=== PATIENT | male | born 1950 | race Caucasian/White ===

== ENCOUNTER 2022-02-03 09:05 | Emergency (ER) | payer OTHER ==
[~2022-02-03] VITALS: Ht 172.7 cm; Wt 79.4 kg
[2022-02-03 09:51] LABS: BASOPHILS ABSOLUTE AUTO 0.03 K/mm3 (0.00-0.23); BASOPHILS PERCENT AUTO 1 % (0-2); EOSINOPHILS ABSOLUTE AUTO 0.07 K/mm3 (0.00-0.68); EOSINOPHILS PERCENT AUTO 2 % (0-6); Hemoglobin 11.8 g/dL (13.5-17.5); IMMATURE GRAN PERCENT AUTO 0 % (0-1); LYMPHOCYTES ABSOLUTE AUTO 0.94 K/mm3 (0.84-5.20); LYMPHOCYTES PERCENT AUTO 29 % (21-46); MONOCYTES ABSOLUTE AUTO 0.28 K/mm3 (0.16-1.47); MONOCYTES PERCENT AUTO 9 % (4-13); Mean Corpuscular HGB 28.6 pg (26.0-34.0); Mean Corpuscular HGB Conc 32.8 g/dL (31.5-36.5); Mean Corpuscular Volume 87 fL (80-100); Mean Platelet Volume 9.7 fL (9.1-12.4); NEUTROPHILS ABSOLUTE AUTO 1.89 K/mm3 (1.96-9.15); NEUTROPHILS PERCENT AUTO 59 % (41-73); Platelet Count 107 K/mm3 (150-400); RDW Coefficient Variation 13.6 % (11.7-14.2); RDW Standard Deviation 43.5 fL (35.1-46.3); Red Blood Cell Count 4.12 M/mm3 (4.30-5.90); White Blood Cell Count 3.21 K/mm3 (4.00-11.30)
[2022-02-03 10:02] LABS: Albumin, Blood 3.5 g/dL (3.4-5.0); Albumin/Globulin Ratio 0.8 (0.8-1.8); Bilirubin, Total 0.5 mg/dL (0.1-1.0); Calcium, Blood 9.2 mg/dL (8.5-10.1); Creatinine, Blood 1.27 mg/dL (0.60-1.20); Globulin, Blood 4.5 g/dL (2.2-4.0); Magnesium, Blood 2.2 mg/dL (1.6-2.4); Potassium, Blood 3.9 mmol/L (3.5-5.5)
[2022-02-03] MEDS ORDERED: LIDO700A20 TOP (10:49)
[2022-02-03] MEDS ORDERED: FLUT1DIS5 INH (10:50)
[2022-02-03] MEDS ORDERED: COMBIVENT RESPIM4 G1 INH (10:51)
[2022-02-03] MEDS ORDERED: OCUFLOX510 OP (10:51)
[2022-02-03] MEDS ORDERED: METF500 PO (10:52)
[2022-02-03] MEDS ORDERED: PRAV20 PO (10:52)
[2022-02-03] MEDS ORDERED: CLOP75 PO (10:52)
[2022-02-03] MEDS ORDERED: LISI20 PO (10:53)
[2022-02-03] MEDS ORDERED: OMEP20ER PO (10:53)
[2022-02-03] MEDS ORDERED: MAGNESIUM OXID500 MG PO (10:53)
[2022-02-03] MEDS ORDERED: GABA300 PO (10:53)
[2022-02-03] MEDS ORDERED: SUBVENITE150 M5 PO (10:54)
[2022-02-03] MEDS ORDERED: JARDIANCE25 MG PO (10:55)
[2022-02-03] MEDS ORDERED: Vitamin D1000 UNI1 PO (10:55)
[2022-02-03] MEDS ORDERED: AMLO10 PO (10:56)
[2022-02-03] MEDS ORDERED: BACL10 PO (10:56)
[2022-02-03] MEDS ORDERED: ALLERCLEAR10 MG PO (10:56)
[2022-02-03] MEDS ORDERED: LEVO750 PO (12:15)
== END 2022-02-03 12:36 | disposition home or self-care (01) ==
LOC: ER 09:05
PROVIDERS: Student in an Organized Health Care Education/Training Program
DX: J18.9 Pneumonia, unspecified organism (principal); E11.9 Type 2 diabetes mellitus without complications; I10 Essential (primary) hypertension; Z87.891 Personal history of nicotine dependence; Z79.899 Other long term (current) drug therapy; Z79.02 Long term (current) use of antithrombotics/antiplatelets; Z79.84 Long term (current) use of oral hypoglycemic drugs
CPT/HCPCS: 71045; 80053; 83735; 84484; 85025; 93005; 93010; A9270; J1642

== ENCOUNTER 2022-10-20 06:20 | Inpatient (IN) | payer OTHER ==
[~2022-10-20] VITALS: Ht 180.3 cm; Wt 75.5 kg
[~2022-10-20 06:20] MED LIST: ALLERCLEAR10 MG PO; AMLO10 PO; BACL10 PO; CLOP75 PO; COMBIVENT RESPIM4 G1 INH; FLUT1DIS5 INH; GABA300 PO; JARDIANCE25 MG PO; LEVO750 PO; LIDO700A20 TOP; LISI20 PO; MAGNESIUM OXID500 MG PO; METF500 PO; OCUFLOX510 OP; OMEP20ER PO; PRAV20 PO; SUBVENITE150 M5 PO; Vitamin D1000 UNI1 PO
[2022-10-20 06:48] LABS: BASOPHILS ABSOLUTE AUTO 0.05 K/mm3 (0.00-0.23); BASOPHILS PERCENT AUTO 1 % (0-2); EOSINOPHILS ABSOLUTE AUTO 0.06 K/mm3 (0.00-0.68); EOSINOPHILS PERCENT AUTO 1 % (0-6); Hematocrit 24.7 % (37.0-53.0); IMMATURE GRAN ABSOLUTE AUTO 0.02 K/mm3 (0.00-0.10); IMMATURE GRAN PERCENT AUTO 0 % (0-1); LYMPHOCYTES ABSOLUTE AUTO 1.51 K/mm3 (0.84-5.20); LYMPHOCYTES PERCENT AUTO 24 % (21-46); MONOCYTES ABSOLUTE AUTO 0.46 K/mm3 (0.16-1.47); MONOCYTES PERCENT AUTO 7 % (4-13); Mean Corpuscular HGB 28.6 pg (26.0-34.0); Mean Corpuscular HGB Conc 32.4 g/dL (31.5-36.5); Mean Corpuscular Volume 88 fL (80-100); Mean Platelet Volume 9.9 fL (9.1-12.4); NEUTROPHILS ABSOLUTE AUTO 4.21 K/mm3 (1.96-9.15); NEUTROPHILS PERCENT AUTO 67 % (41-73); Platelet Count 162 K/mm3 (150-400); RDW Coefficient Variation 14.8 % (11.7-14.2); RDW Standard Deviation 47.5 fL (35.1-46.3); White Blood Cell Count 6.31 K/mm3 (4.00-11.30)
[2022-10-20 07:07] LABS: Albumin, Blood 2.8 g/dL (3.4-5.0); Albumin/Globulin Ratio 0.8 (0.8-1.8); Bilirubin, Direct 0.1 mg/dL (0.0-0.3); Bilirubin, Indirect 0.5 mg/dL (0.1-0.7); Bilirubin, Total 0.6 mg/dL (0.1-1.0); Bun/Creatinine Ratio 23.3 (12.0-20.0); Calcium, Blood 8.6 mg/dL (8.5-10.1); Creatinine, Blood 1.16 mg/dL (0.60-1.20); Globulin, Blood 3.7 g/dL (2.2-4.0); Magnesium, Blood 2.2 mg/dL (1.6-2.4); Potassium, Blood 3.6 mmol/L (3.5-5.5); Total Protein, Blood 6.5 g/dL (6.4-8.2)
[2022-10-20 08:03] LABS: International Normalized Ratio 1.13; Prothrombin Time Results 11.8 Sec (9.7-11.5)
[2022-10-20 10:34] LABS: Hematocrit 24.6 % (37.0-53.0); Hemoglobin 8.1 g/dL (13.5-17.5); Mean Corpuscular HGB 28.6 pg (26.0-34.0); Mean Corpuscular HGB Conc 32.9 g/dL (31.5-36.5); Mean Corpuscular Volume 87 fL (80-100); Mean Platelet Volume 9.8 fL (9.1-12.4); Platelet Count 178 K/mm3 (150-400); RDW Coefficient Variation 14.6 % (11.7-14.2); RDW Standard Deviation 44.9 fL (35.1-46.3); Red Blood Cell Count 2.83 M/mm3 (4.30-5.90); White Blood Cell Count 9.64 K/mm3 (4.00-11.30)
[2022-10-20] MEDS ORDERED: Amoxicillin500 MG PO (10:40)
[2022-10-20] MEDS ORDERED: EPIPEN0.3 MG/0.3 IM (10:41)
[2022-10-20] MEDS ORDERED: TRAM50 PO (10:43)
[2022-10-20 10:53] LABS: Influenza A, PCR NEGATIVE (NEGATIVE); Influenza B, PCR NEGATIVE (NEGATIVE); Resp Syncytial Virus, PCR NEGATIVE (NEGATIVE); SARS-Cov-2 (COVID-19) PCR, MMC NEGATIVE (NEGATIVE)
[2022-10-20 14:54] LABS: Hematocrit 21.7 % (37.0-53.0); Hemoglobin 7.2 g/dL (13.5-17.5)
[2022-10-20 16:06] LABS: Hemoglobin 6.7 g/dL (13.5-17.5)
--- NOTE | 2022-10-20 18:53 | NUR ---
ADMISSION/ END OF SHIFT PT ADMITTED FROM THE ED INTO ROOM PCU3. PT WAS ORIENTED TO ROOM AND CALL LIGHT SYSTEM. VITALS STABLE SINCE ADMISSION. NO EMESIS. PT HAS HAD DARK TARRY STOOL. PT REPORTS FREQUENCY HAS DECREASED. THIRD IV ACCESS STARTED. PT CURRENTLY HAS PROTONIX AND OCTEROTIDE GTT. WAITING ON BLOOD TO BE DELIVERED. PT IS ABLE TO MAKE NEEDS KNOWN, AWARE THAT HE NEEDS TO CALL WHEN GETTING OOB. CALL LIGHT IS WITHIN REACH.
[2022-10-20 22:29] LABS: Hematocrit 23.3 % (37.0-53.0); Hemoglobin 7.6 g/dL (13.5-17.5)
[2022-10-21 02:15] LABS: Hemoglobin 7.8 g/dL (13.5-17.5)
[2022-10-21 02:29] LABS: International Normalized Ratio 1.16; Prothrombin Time Results 12.1 Sec (9.7-11.5)
[2022-10-21 02:31] LABS: Albumin, Blood 2.8 g/dL (3.4-5.0); Albumin/Globulin Ratio 0.8 (0.8-1.8); Bilirubin, Total 1.1 mg/dL (0.1-1.0); Bun/Creatinine Ratio 25.4 (12.0-20.0); Creatinine, Blood 1.22 mg/dL (0.60-1.20); Globulin, Blood 3.6 g/dL (2.2-4.0); Potassium, Blood 3.6 mmol/L (3.5-5.5); Total Protein, Blood 6.4 g/dL (6.4-8.2)
--- NOTE | 2022-10-21 05:34 | NUR ---
SHIFT SUMMARY ASSUMED CARE OF PT AT 1900. PT IS A/OX4. HEART SOUNDS REGULAR. LUNG SOUNDS CLEAR. PT REQUESTED 2L NC AT [facility] DUE TO SLEEP APNEA BUT PT DID NOT HAVE ANY EPISODES AND SATURATIONS REMAINED ABOVE 95% WHILE SLEEPING. PT ABD IS DISTENED AND PAINFUL, MEDICATED PER EMAR. NO BM OR NEASEA THIS SHIFT. PT USED URINAL T/O THE NIGHT. PT SLEPT T/O THE NIGHT.
[2022-10-21 06:17] LABS: Hematocrit 23.8 % (37.0-53.0)
[2022-10-21 10:28] LABS: Hematocrit 23.2 % (37.0-53.0); Hemoglobin 7.8 g/dL (13.5-17.5)
[2022-10-21 14:21] LABS: Hematocrit 24.4 % (37.0-53.0); Hemoglobin 8.1 g/dL (13.5-17.5)
--- NOTE | 2022-10-21 18:24 | NUR ---
END OF SHIFT NOTE PT HAD A DECENT DAY DESPITE BEING ABLE TO BE TRANSFERRED TO [place]. PT CONTINUES TO HAVE BLACK, TARRY STOOL BUT WITH LESS FREQUENCY. ABD CONTINUES TO BE DISTENDED AND TENDER. CBGs IN THE HIGH 200s, PT ENCOURAGED TO DRINK LOWER SUGAR OPTIONS OR DILUTE JUICE. OCTEROTIDE AND PROTONIX GTTs CONTINUE. LAST HBG 8.1, NEXT DRAW AT 2200. PT IS ABLE TO MAKE NEEDS KNOWN, CALL LIGHT IS WITHIN REACH.
[2022-10-21 22:20] LABS: Hematocrit 21.8 % (37.0-53.0); Hemoglobin 7.2 g/dL (13.5-17.5)
[2022-10-22 04:01] LABS: Hematocrit 22.5 % (37.0-53.0); Hemoglobin 7.4 g/dL (13.5-17.5)
[2022-10-22 04:19] LABS: Albumin, Blood 2.7 g/dL (3.4-5.0); Albumin/Globulin Ratio 0.8 (0.8-1.8); Bilirubin, Total 0.5 mg/dL (0.1-1.0); Bun/Creatinine Ratio 17.3 (12.0-20.0); Calcium, Blood 7.9 mg/dL (8.5-10.1); Creatinine, Blood 1.04 mg/dL (0.60-1.20); Globulin, Blood 3.4 g/dL (2.2-4.0); Potassium, Blood 3.4 mmol/L (3.5-5.5); Total Protein, Blood 6.1 g/dL (6.4-8.2)
--- NOTE | 2022-10-22 05:38 | NUR ---
SHIFT SUMMARY ASSUMED CARE OF PT AT 1900. PT IS A/OX4. HEART SOUNDS REGULAR. LUNG SOUNDS CLEAR. PT REQUESTED NEEDED ING OXYGEN BECAUSE HE COULD NOT SLEEP LAST NIGHT. DESPITE OXYGEN LEVELS BEING MONITORED AND PT SATURATIONS REMAINING ABOVE 95%. PT USED URINAL AT BEDSIDE. PT REPORTED ABD PAIN, MEDICATED PER EMAR. NO ACUTE CHANGES.
--- NOTE | 2022-10-22 11:30 | NUR ---
UPDATE / PAIN PT A&O X4. VSS. SPO2 > 92% ON RA. MONITOR SHOWING SR, HR 60s. PT REPORTING CONSTANT ABD TENDERNESS THIS AM. LATER THIS MORNING, PT REPORTING 8/10 SHARP STABBING PAIN TO R ABD. PT THEN REPORTING NAUSEA & SOB. PT THEN W/ TEARS IN EYES, STATING "I'M NOT ONE TO CRY, BUT THIS IS BRINGING TEARS TO MY EYES. THIS IS NOT LIKE ME." PT REPORTING PAIN INCREASE TO 10/10. PRN IV ZOFRAN GIVEN PER EMAR. CALL TO MD LAYTON W/ TO BEDSIDE W/ ORDER FOR PRN IV FENTANYL, SEE ORDER & ABD US. PT MEDICATED FOR PAIN W/ IMPROVEMENT IN SYMPTOMS. US NOW BEING DONE AT BEDSIDE.
[2022-10-22 12:00] LABS: Hematocrit 22.1 % (37.0-53.0); Hemoglobin 7.4 g/dL (13.5-17.5)
--- NOTE | 2022-10-22 13:16 | NUR ---
COBRA TRANSFER PT TRANSFER TO [facility]. PT TAKEN OUT BY TRANSPORT VIA [facility] @ APPROX 1300. PROTONIX GTT & OCTREOTIDE GTT INFUSING PER ORDERS. PT A&O X4. VSS. SPO2 > 92% ON RA. MONITOR SHOWING SR, HR 60s. PT REPORTING ABD PAIN DECREASE TO 4/10 AFTER PRN PAIN MEDICATION ADMINISTRATION. PT W/ 1 BLACK BM THIS SHIFT PRIOR TO DEPARTURE. REPORT CALLED TO ACCEPTING GUSTAVO PEREZ.
== END 2022-10-22 12:58 | disposition short-term general hospital (02) | DRG 433 ==
LOC: ER 06:20 → ERHOLD 13:17 → PCU 16:53
PROVIDERS: Nurse Practitioner Acute Care; Student in an Organized Health Care Education/Training Program; ADMIT Hospitalist
PROC: 30233N1 Transfusion of Nonautologous Red Blood Cells into Peripheral Vein, Percutaneous Approach (ICD-10-PCS; principal; 2022-10-20)
DX: K74.60 Unspecified cirrhosis of liver (principal); C22.0 Liver cell carcinoma; K92.0 Hematemesis; D62 Acute posthemorrhagic anemia; I13.0 Hypertensive heart and chronic kidney disease with heart failure and stage 1 through stage 4 chronic kidney disease, or unspecified chronic kidney disease; I48.20 Chronic atrial fibrillation, unspecified; I50.32 Chronic diastolic (congestive) heart failure; R18.8 Other ascites; K76.6 Portal hypertension; R65.10 Systemic inflammatory response syndrome (SIRS) of non-infectious origin without acute organ dysfunction; E87.20 Acidosis, unspecified; Z20.822 Contact with and (suspected) exposure to COVID-19; K21.9 Gastro-esophageal reflux disease without esophagitis; F41.9 Anxiety disorder, unspecified; M54.12 Radiculopathy, cervical region; N18.9 Chronic kidney disease, unspecified; E11.22 Type 2 diabetes mellitus with diabetic chronic kidney disease; J44.9 Chronic obstructive pulmonary disease, unspecified; I25.10 Atherosclerotic heart disease of native coronary artery without angina pectoris; B19.20 Unspecified viral hepatitis C without hepatic coma; F32.A Depression, unspecified; F43.10 Post-traumatic stress disorder, unspecified; G40.909 Epilepsy, unspecified, not intractable, without status epilepticus; E78.5 Hyperlipidemia, unspecified; I65.29 Occlusion and stenosis of unspecified carotid artery; Z98.890 Other specified postprocedural states; Z88.2 Allergy status to sulfonamides; Z88.1 Allergy status to other antibiotic agents; Z88.5 Allergy status to narcotic agent; Z88.8 Allergy status to other drugs, medicaments and biological substances; Z79.899 Other long term (current) drug therapy
CPT/HCPCS: 0241U; 36415; 36430; 74177; 76705; 80048; 80053; 80076; 82947; 83605; 83690; 83735; 85014; 85018; 85025; 85027; 85610; 85730; 86850; 86870; 86900; 86901; 86902; 86905; 86922; 93005; 93010; 94640; 94664; 94760; 96365-59; 96366; 96367; 96375; 96376; 99285-25; A9270; C1751; C9113; J0696; J2354; J2405; J2765; J3010; J3475; J7050; P9016; Q9967

== ENCOUNTER 2023-03-22 09:08 | Inpatient (IN) | payer OTHER ==
[~2023-03-22] VITALS: Ht 172.7 cm; Wt 77.0 kg
[~2023-03-22 09:08] MED LIST changes: +Amoxicillin500 MG PO; +EPIPEN0.3 MG/0.3 IM; +HYDR1TAB94 PO; +ONDA4ODT MM; +TRAM50 PO
[2023-03-22 09:53] LABS: BASOPHILS ABSOLUTE AUTO 0.03 K/mm3 (0.00-0.23); BASOPHILS PERCENT AUTO 1 % (0-2); EOSINOPHILS ABSOLUTE AUTO 0.05 K/mm3 (0.00-0.68); EOSINOPHILS PERCENT AUTO 2 % (0-6); Hematocrit 32.6 % (37.0-53.0); Hemoglobin 10.3 g/dL (13.5-17.5); IMMATURE GRAN ABSOLUTE AUTO 0.01 K/mm3 (0.00-0.10); IMMATURE GRAN PERCENT AUTO 0 % (0-1); LYMPHOCYTES ABSOLUTE AUTO 0.39 K/mm3 (0.84-5.20); LYMPHOCYTES PERCENT AUTO 12 % (21-46); MONOCYTES PERCENT AUTO 9 % (4-13); Mean Corpuscular HGB 25.4 pg (26.0-34.0); Mean Corpuscular HGB Conc 31.6 g/dL (31.5-36.5); Mean Corpuscular Volume 80 fL (80-100); Mean Platelet Volume 9.4 fL (9.1-12.4); NEUTROPHILS ABSOLUTE AUTO 2.42 K/mm3 (1.96-9.15); NEUTROPHILS PERCENT AUTO 76 % (41-73); Platelet Count 119 K/mm3 (150-400); RDW Coefficient Variation 16.6 % (11.7-14.2); RDW Standard Deviation 48.2 fL (35.1-46.3); Red Blood Cell Count 4.06 M/mm3 (4.30-5.90)
[2023-03-22 10:16] LABS: Albumin, Blood 2.8 g/dL (3.4-5.0); Albumin/Globulin Ratio 0.6 (0.8-1.8); Bilirubin, Total 0.4 mg/dL (0.1-1.0); Bun/Creatinine Ratio 12.2 (12.0-20.0); Calcium, Blood 8.5 mg/dL (8.5-10.1); Creatinine, Blood 1.23 mg/dL (0.60-1.20); Globulin, Blood 4.4 g/dL (2.2-4.0); Potassium, Blood 4.4 mmol/L (3.5-5.5); Total Protein, Blood 7.2 g/dL (6.4-8.2)
[2023-03-22] MEDS ORDERED: AMLO5 PO (16:19)
[2023-03-22] MEDS ORDERED: AMOX500 PO (16:19)
[2023-03-22] MEDS ORDERED: ZESTRIL40 MG PO (16:21)
[2023-03-22 16:51] VITALS: BP 102/79
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
[2023-03-22 19:25] VITALS: BP 98/67
[2023-03-23 01:22] LABS: Hematocrit 32.2 % (37.0-53.0); Mean Corpuscular HGB 25.1 pg (26.0-34.0); Mean Corpuscular HGB Conc 31.1 g/dL (31.5-36.5); Mean Corpuscular Volume 81 fL (80-100); Mean Platelet Volume 9.1 fL (9.1-12.4); Platelet Count 104 K/mm3 (150-400); RDW Coefficient Variation 16.4 % (11.7-14.2); RDW Standard Deviation 48.8 fL (35.1-46.3); Red Blood Cell Count 3.99 M/mm3 (4.30-5.90); White Blood Cell Count 1.97 K/mm3 (4.00-11.30)
[2023-03-23 01:41] LABS: Bun/Creatinine Ratio 13.7 (12.0-20.0); Calcium, Blood 8.5 mg/dL (8.5-10.1); Creatinine, Blood 1.24 mg/dL (0.60-1.20); Potassium, Blood 4.4 mmol/L (3.5-5.5)
[2023-03-23 04:14] VITALS: BP 152/87
[2023-03-23 04:15] VITALS: BP 126/86
[2023-03-23 04:18] VITALS: BP 201/166
--- NOTE | 2023-03-23 05:50 | NUR ---
PATIENT A/OX4, NEEDS ASSISTANCE TO GET TO SITTING POSITION DUE TO L ARM IMMOBILIZER, OTHERWISE, INDEPENDENT IN ROOM. SLEPT MOST OF THIS SHIFT. BANDAGES TO L ARM REMAIN C/D/I, PATIENT REFUSED TO HAVE THEM CHANGED LAST NIGHT AND WANTED TO WAIT UNTIL THE MORNING. ORTHOSTATIC VITAL SIGNS TAKEN AND BLOOD PRESSURE ACUTALLY WENT UP SIGNIFICANTY WHILE STANDING. ST ON TELE, DENIES ANY CP OR PRESSURE. SEE SEPARATE NOTE BY THIS RN FOR ORTHOSTATIC VITAL SIGNS. MEDIPORT ACCESSED AND FLUIDS RUNNING TKO.
--- NOTE | 2023-03-23 05:58 | NUR ---
ORTHOSTATIC VITAL SIGNS: LYING: B/P 152/87 HR 113 SITTING: B/P 126/86 HR 117 STANDING: B/P 201/166 HR 114 (REPEATED TWICE) SCHEDULED METOPROLOL GIVEN AND DR. DRIVER NOTIFIED OF FINDINGS.
[2023-03-23 15:30] VITALS: BP 99/73
--- NOTE | 2023-03-23 18:02 | NUR ---
SHIFT SUMMARY PATIENT CONTINUES TO BE IN A FLUTTER FROM 110'S TO 130'S. INCREASED DOSES OF METOPROLOL AND STARTING LANOXIN LOADING DOSE. PATIENT ALERT AND COOPERATIVE WITH CARE. SHOULDER IMMOBILIZER IN PLACE. PATIENT MEDICATED FOR PAIN WITH TRAMADOL PATIENT DENIES ANY CP. BP IMPROVED. CONTINUES TO HAVE DIZZINESS WHEN OOB. PT WORKED WITH PT AND OT BUT WAS NOT ABLE TO DO MUCH BECAUSE OF DIZZINESS.
[2023-03-23 20:56] VITALS: BP 118/99
[2023-03-24 01:48] VITALS: BP 139/95
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
[2023-03-24 06:18] LABS: Digoxin (Lanoxin) 1.82 ug/mL (0.80-2.00)
--- NOTE | 2023-03-24 06:45 | NUR ---
MEDICATION OVERRIDE FOR RAPID RESPONSE. WAS UNABLE TO PULL 1000 NORMAL SALINE FROM PT EMAR.
[2023-03-24 07:28] VITALS: BP 135/67
[2023-03-24 16:03] VITALS: BP 143/63
[2023-03-24 16:30] VITALS: BP 109/72
--- NOTE | 2023-03-24 18:30 | NUR ---
SHIFT SUMMARY PATIENT CONVERTED TO SB AT START OF SHIFT. FRAMEMAN CALLED. PATIENT ALERT AND ORIENTED. FLUID BOLUS GIVEN AND CONTINUED TO REMAIN IN SR THROUGHOUT THE DAY. CONTINUES TO HAVE SHOULDER PAIN CONTROLLED BY TRAMADOL. SPLINT/SLING IN PLACE HOLDING L SHOULDER. PATIENT EAGER TO GET HOME BUT UNDERSTANDS NEED TO ADJUST MEDS FOR RATE CONTROL. ORTHOSTATIC BLOOD PRESSURES DONE PER REQUEST WITH MINIMAL CHANGES.
[2023-03-25 05:03] VITALS: BP 121/57
--- NOTE | 2023-03-25 07:09 | NUR ---
UNEVENTFUL NIGHT. SINUS TU ON TELE IN 50'S ULTRAM FOR PAIN X2 WITH MODERATE EFFECTIVENESS. AO, PLEASANT, CONTINENT, EXPRESSES DESIRE TO RETURN HOME TODAY. USES URINAL INDEPENDENTLY AT NIGHT. DENIES CP, SOB. FIRE SAFETY REVIEWED.
[2023-03-25 07:24] VITALS: BP 123/72
[2023-03-25] MEDS ORDERED: DIGOX125 MC1 PO (10:46)
[2023-03-25] MEDS ORDERED: METO25 PO (10:47)
--- NOTE | 2023-03-25 11:47 | NUR ---
DISCHARGE MR LUNA WAS DISCHARGED HOME AT 1145 VIA WHEELCHAIR WITH BEAD BUILDER AND HIS . HE VERBALISED UNDERSTANDING OF WRITTEN AND VERBAL DISCHARGE INSTRUCTIONS. LEFT ARM IN IMMOBILIZER ALL SHIFT. PT AMBULATING WITH STEADY GAIT. C/O CHRONIC BACK PAIN AND LEFT SHOULDER DISCOMFORT BUT DENIED NEED FOR PAIN MEDS TODAY. MEDIPORT DEACCESSED AND TELEMETRY REMOVED PRIOR TO DISCHARGE.
== END 2023-03-25 11:50 | disposition home or self-care (01) | DRG 309 ==
LOC: ER 09:08 → MEDS 09:09 → ENPENDDIS 03-25 10:51 → MEDS 03-25 11:50
PROVIDERS: Emergency Medicine; ADMIT Internal Medicine
DX: I48.92 Unspecified atrial flutter (principal); D61.818 Other pancytopenia; I48.91 Unspecified atrial fibrillation; I95.9 Hypotension, unspecified; R29.6 Repeated falls; K74.60 Unspecified cirrhosis of liver; B19.20 Unspecified viral hepatitis C without hepatic coma; E78.5 Hyperlipidemia, unspecified; K21.9 Gastro-esophageal reflux disease without esophagitis; K26.9 Duodenal ulcer, unspecified as acute or chronic, without hemorrhage or perforation; K25.9 Gastric ulcer, unspecified as acute or chronic, without hemorrhage or perforation; E11.42 Type 2 diabetes mellitus with diabetic polyneuropathy; I25.10 Atherosclerotic heart disease of native coronary artery without angina pectoris; F43.10 Post-traumatic stress disorder, unspecified; I65.29 Occlusion and stenosis of unspecified carotid artery; R00.1 Bradycardia, unspecified; I10 Essential (primary) hypertension; G40.909 Epilepsy, unspecified, not intractable, without status epilepticus; Z90.49 Acquired absence of other specified parts of digestive tract; Z98.890 Other specified postprocedural states; Z85.05 Personal history of malignant neoplasm of liver; Z88.8 Allergy status to other drugs, medicaments and biological substances; Z88.5 Allergy status to narcotic agent; Z87.19 Personal history of other diseases of the digestive system; Z92.3 Personal history of irradiation; Z87.81 Personal history of (healed) traumatic fracture; Z88.1 Allergy status to other antibiotic agents; Z87.891 Personal history of nicotine dependence; I25.2 Old myocardial infarction; Z79.899 Other long term (current) drug therapy; Z79.2 Long term (current) use of antibiotics; Z79.02 Long term (current) use of antithrombotics/antiplatelets; Z79.811 Long term (current) use of aromatase inhibitors; Z79.84 Long term (current) use of oral hypoglycemic drugs
CPT/HCPCS: 71260; 80048; 80053; 80162; 82947; 83880; 84443; 84484; 85025; 85027; 93005; 93010; 93306; 94640; 94664; 94760; 96361; 96372; 96374-59; 96375-59; 97161; 97165; 97530; 99285-25; A9270; G0378; J1160; J1170; J1642; J1650; J2405; J7030; J7050; Q9967

== ENCOUNTER 2023-05-21 21:30 | Inpatient (IN) | payer OTHER ==
[~2023-05-21] VITALS: Ht 172.7 cm; Wt 77.1 kg
[~2023-05-21 21:30] MED LIST changes: +AMLO5 PO; +AMOX500 PO; +DIGOX125 MC1 PO; +METO25 PO; +ZESTRIL40 MG PO
[2023-05-21 21:56] LABS: BASOPHILS ABSOLUTE AUTO 0.03 K/mm3 (0.00-0.23); BASOPHILS PERCENT AUTO 1 % (0-2); EOSINOPHILS ABSOLUTE AUTO 0.04 K/mm3 (0.00-0.68); EOSINOPHILS PERCENT AUTO 2 % (0-6); Hemoglobin 10.2 g/dL (13.5-17.5); IMMATURE GRAN ABSOLUTE AUTO 0.01 K/mm3 (0.00-0.10); IMMATURE GRAN PERCENT AUTO 0 % (0-1); LYMPHOCYTES ABSOLUTE AUTO 0.28 K/mm3 (0.84-5.20); LYMPHOCYTES PERCENT AUTO 10 % (21-46); MONOCYTES ABSOLUTE AUTO 0.34 K/mm3 (0.16-1.47); MONOCYTES PERCENT AUTO 13 % (4-13); Mean Corpuscular HGB 24.6 pg (26.0-34.0); Mean Corpuscular HGB Conc 30.9 g/dL (31.5-36.5); Mean Corpuscular Volume 80 fL (80-100); Mean Platelet Volume 9.9 fL (9.1-12.4); NEUTROPHILS PERCENT AUTO 74 % (41-73); Platelet Count 115 K/mm3 (150-400); RDW Coefficient Variation 16.5 % (11.7-14.2); RDW Standard Deviation 47.6 fL (35.1-46.3); Red Blood Cell Count 4.15 M/mm3 (4.30-5.90)
[2023-05-21 22:24] LABS: Alanine Aminotransfer (ALT/SGP 21 U/L (12-78); Albumin, Blood 3.2 g/dL (3.4-5.0); Albumin/Globulin Ratio 0.7 (0.8-1.8); Alk Phos 157 U/L (50-136); Anion Gap 7 mmol/L (6-16); Aspartate Aminotrans (AST/SGOT 20 U/L (12-37); Bilirubin, Total 0.3 mg/dL (0.1-1.0); Blood Urea Nitrogen 15 mg/dL (8-24); Bun/Creatinine Ratio 11.8 (12.0-20.0); CO2, Blood 26 mmol/L (21-32); Calcium, Blood 8.9 mg/dL (8.5-10.1); Chloride, Blood 107 mmol/L (98-108); Creatinine, Blood 1.27 mg/dL (0.60-1.20); Digoxin (Lanoxin) <0.06 ug/mL (0.80-2.00); Globulin, Blood 4.7 g/dL (2.2-4.0); Glomerular Filtration Rate 60 (60-); Glucose, Blood 364 mg/dL (70-99); Potassium, Blood 4.6 mmol/L (3.5-5.5); Sodium, Blood 140 mmol/L (136-145); Total Protein, Blood 7.9 g/dL (6.4-8.2)
[2023-05-22] VITALS (7 sets, daily range): BP systolic 97–137; BP diastolic 69–79
[2023-05-22 01:00] LABS: Anti-Xa UFH, PHA Monitoring <0.10 IU/mL; Prothrombin Time Results 10.5 Sec (9.7-11.5)
--- NOTE | 2023-05-22 01:01 | NUR ---
TRANSFER UPDATE REPORT RECIEVED FROM ER NURSE, TIFFANIE, AT 1257.
[2023-05-22 01:29] LABS: CHOL/HDL RATIO 3.5; Cholesterol 183 mg/dL (50-200); HDL Cholesterol 52 mg/dL (>39); LDL/HDL RATIO 1.6; Low Density Lipoprotein Chol 85 mg/dL (0-110); Magnesium, Blood 2.3 mg/dL (1.6-2.4); Thyroid Stimulating Hormone 0.426 uIU/mL (0.360-4.800); Triglycerides 229 mg/dL (30-160); Very Low Density Lipoprot Chol 45 mg/dL (6-32)
--- NOTE | 2023-05-22 04:49 | NUR ---
SHIFT SUMMARY PT A/OX4 SINCE TIME OF ARRIVAL TO PCU. PT ABLE TO EXPRESS NEEDS. PT BP'S SOFT BUT STABLE. NO REPORT OF CHEST PAIN/PRESSURE SINCE ARRIVING TO UNIT. HEP GTT AND BOLUS GIVEN PER ORDERS. MEDIPORT OF RIGHT CHEST ACCESSED PER PT REQUEST, APPROVED ORDER. PT USING URINAL IN BED. AT BEDSIDE. NO ACUTE PROCESSES SINCE ARRIVAL TO UNIT.
--- NOTE | 2023-05-22 08:30 | NUR ---
INITIAL ASSESSMENT: Patient is lying on his right side resting with his eyes closed, he is oriented x4. He states he is "just tired, didn't get any sleep last night." He reports minimal pain in his left foot, he states he injured it when he fell at home. Patient states he has been falling alot at home for about the last year. His states he just gets up an goes, he doesn't wait for help. HR irreg, A-Fib in the low 100s-115. LS DIM In the bases, patient wears 2L 02 at night basline. His oxygen saturations are high 90s while awake on RA. BT+. PPP. His left foot is swollen and very bruised on the to of the foot extending up into the base of the ankle. VSS. Patient is asking about being able to eat, he is currently NPO, Dr. Dumont states he will look into it and order a diet if we aren't going to order any tests. Patient denies other needs at this time. Call light in reach. at bedside.
[2023-05-22] MEDS ORDERED: PANT40 PO (10:25)
--- NOTE | 2023-05-22 11:30 | NUR ---
Update: Patient has been up in the room to the bathroom. He wanted to walk to the bathroom with the walker, he is not wanting to put any weight on the left foot that is injured. He is not very safe getting all the way to the bathroom, at times he is leaning-staff is able to stablize him he was able to have a BM on the toilet. He then went to the recliner to sit. VSS. His X-RAY restuls are back and communuicated to Dr. Sommers. OT stopped by and will work with the patient once we have clear weight bearing restrictions. The patient denies needs at this time. VSS. Call light in reach.
--- NOTE | 2023-05-22 13:45 | NUR ---
Report given to [employer].
--- NOTE | 2023-05-22 13:46 | NUR ---
ASSUMED CARE THIS RN ASSUMED CARE OF PT AT 1340. PT ALERT AND ORIENTED, UP IN CHAIR. VSS AT THIS TIME. HEPARIN INFUSING AT 13 U/KG/HR PER EMAR IN MEDIPORT. SPOUSE AT BEDSIDE. EDUCATED PT ON USING CALL LIGHT TO GET STAFF ASSISTANCE FOR AMBULATION. CALL LIGHT WITHIN REACH.
--- NOTE | 2023-05-22 18:23 | NUR ---
END OF SHIFT NOTE PT A&OX4 SINCE ASSUMPTION OF CARE THIS PM. CALLS APPROPRIATELY AND MAKE NEEDS KNOWN TO STAFF. HR AFLUTTER, 110'S. METOPROLOL GIVEN PER EMAR. SBP 118, DENIES CHEST PAIN/PRESSURE. SPO2 >95% ON 2L NC, DENIES SOB. MEDIPORT IN R CHEST ACCESSED, INFUSING HEPARIN PER EMAR. HEPARIN MANAGED BY PHARMACY. LEFT FOOT IS SWOLLEN AND BRUISED, PAINFUL FOR PT. PAIN MANAGED PER EMAR. PODIATRY CONSULT THIS PM, POSTERIOR SPLINT APPLIED TO LLE BY THIS RN PER MD ORDER. PT REPORTS FEELING TIRED THIS SHIFT; SITTING UP IN RECLINER ALL AFTERNOON. MINIMAL PO INTAKE. SPOUSE AT BEDSIDE. NO OTHER EVENTS. CALL LIGHT WITHIN REACH. WILL REPORT TO ONCOMING NOC RN.
[2023-05-23] VITALS (40 sets, daily range): BP systolic 83–133; BP diastolic 44–81
[2023-05-23 07:23] LABS: BASOPHILS ABSOLUTE AUTO 0.02 K/mm3 (0.00-0.23); BASOPHILS PERCENT AUTO 1 % (0-2); EOSINOPHILS ABSOLUTE AUTO 0.04 K/mm3 (0.00-0.68); EOSINOPHILS PERCENT AUTO 1 % (0-6); Hematocrit 34.5 % (37.0-53.0); Hemoglobin 10.6 g/dL (13.5-17.5); IMMATURE GRAN PERCENT AUTO 0 % (0-1); LYMPHOCYTES ABSOLUTE AUTO 0.51 K/mm3 (0.84-5.20); LYMPHOCYTES PERCENT AUTO 18 % (21-46); MONOCYTES ABSOLUTE AUTO 0.34 K/mm3 (0.16-1.47); MONOCYTES PERCENT AUTO 12 % (4-13); Mean Corpuscular HGB 24.5 pg (26.0-34.0); Mean Corpuscular HGB Conc 30.7 g/dL (31.5-36.5); Mean Corpuscular Volume 80 fL (80-100); Mean Platelet Volume 9.4 fL (9.1-12.4); NEUTROPHILS ABSOLUTE AUTO 1.95 K/mm3 (1.96-9.15); NEUTROPHILS PERCENT AUTO 68 % (41-73); Platelet Count 104 K/mm3 (150-400); RDW Coefficient Variation 16.4 % (11.7-14.2); RDW Standard Deviation 46.6 fL (35.1-46.3); Red Blood Cell Count 4.33 M/mm3 (4.30-5.90); White Blood Cell Count 2.86 K/mm3 (4.00-11.30)
--- NOTE | 2023-05-23 07:29 | NUR ---
SHIFT SUMMARY PT IS A/O, SLEPT INTERMITTENTLY, SLEPT IN RECLINER AT BEDSIDE. SR, BP WNL. 2L NC WHILE ASLEEP TO MAINTAIN O2 SAT > 92%. LUNGS COARSE/DIM BASES. TOLERATING PO INTAKE. VOIDS USING URINAL. PIV TO LEFT AC AND MEDIPORT ACCESSED, HEPARIN INFUSING. POC ONGOING
[2023-05-23 07:47] LABS: BAND PERCENT MAN 1 % (0-8); BASOPHILS PERCENT MAN 0 % (0-2); EOSINOPHILS ABSOLUTE MAN 0.05 K/mm3 (0.00-0.68); EOSINOPHILS PERCENT MAN 2 % (0-6); LYMPHOCYTES ABSOLUTE MAN 0.54 K/mm3 (0.84-5.20); LYMPHOCYTES PERCENT MAN 19 % (21-46); MONOCYTES ABSOLUTE MAN 0.17 K/mm3 (0.16-1.47); MONOCYTES PERCENT MAN 6 % (4-13); NEUTROPHILS ABSOLUTE MAN 2.08 K/mm3 (1.96-9.15); SEG NEUTROPHILS PERCENT MAN 72 % (41-73); TOTAL CELLS COUNTED 100
[2023-05-23 07:49] LABS: Albumin/Globulin Ratio 0.6 (0.8-1.8); Bilirubin, Total 0.6 mg/dL (0.1-1.0); Bun/Creatinine Ratio 14.3 (12.0-20.0); Calcium, Blood 8.7 mg/dL (8.5-10.1); Creatinine, Blood 1.19 mg/dL (0.60-1.20); Globulin, Blood 4.8 g/dL (2.2-4.0); Potassium, Blood 4.7 mmol/L (3.5-5.5); Total Protein, Blood 7.8 g/dL (6.4-8.2)
[2023-05-23 08:28] LABS: Magnesium, Blood 2.3 mg/dL (1.6-2.4)
--- NOTE | 2023-05-23 12:35 | NUR ---
CONTINUOUS DRIER OPERATOR INITIATED PHYSICAL THERAPIST WORKING WITH PT. PT REPORTED FEELING DIZZY WHILE SITTING ON EDGE OF THE BED. PHYSICAL THERAPIST NOTED CHANGE IN LEVEL OF CONSCIOUSNESS, SYNCOPAL EPISODE OCCURRED. CONTINUOUS DRIER OPERATOR CALLED AT 1150. THIS RN, MARYJO RN, FRAN RN, EVENS RN, ERYN RT, AND DR. REYNOLDS TO BEDSIDE. HYPOTENSION NOTED W/ TACHYCARDIA, SEE VITALS. VERBAL ORDERS RECEIVED FROM DR. REYNOLDS FOR 500ML NS BOLUS AND EKG. NS BOLUS ADMINISTERED. EKG COMPLETED. DR. ONEIL AND TEAM RESPONDED TO PT ROOM. PT REPORTS CRUSHING CHEST PAIN AND SHORTNESS OF BREATH. STATES HE FEELS LIKE AN ELEPHANT IS SITTING ON HIS CHEST. SPO2 STABLE ON O2 VIA NC. ORDERS RECEIVED FOR TROPONIN DRAW. BP STABLE AT THIS TIME, SEE VITALS. CALL LIGHT WITHIN REACH OF PT. BED ALARM ON, PT EXTENSIVELY EDUCATED ON IMPORTANCE OF CALLING PRIOR TO GETTING OUT OF BED AND FALL PREVENTION.
--- NOTE | 2023-05-23 15:30 | NUR ---
PHYSICIAN CONTACT CALL PLACED TO MD ONEIL REGARDING PERSISTENT TACHYCARDIA. HOLD METOPROLOL PER ORDER PARAMETERS FOR BP. MD AWARE OF THIS. ORDERS RECEIVED FOR AMIODARONE BOLUS AND DRIP. WILL ADMINISTER PER EMAR. ALSO NOTIFIED THAT PT REPORTS HIS CRUSHING CHEST PAIN HAS RESOLVED.
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
--- NOTE | 2023-05-23 21:34 | NUR ---
ASSUMED CARE PT ARRIVED ON UNIT A&O X4; SPO2 >92% ON 2LNC; MAP >65; HR IN THE 40'S. PT IS PLEASANT AND COOPERATIVE W/ CARE. COMPLAINS OF 9/10 CP THAT IS "OFF AND ON"; PT STATES THAT THIS PAIN IS UNCHANGED FROM WHAT PT HAS BEEN EXPERIENCING SINCE ADMIT. HEPARIN INFUSING PER ORDER. MEDIPORT CONNECTED TO TKO. UPDATE DR SALVADOR CALLED W/ CLARIFICATION ON CARE PLAN. DOPAMINE TO BE INFUSED AND MORPHINE FOR CP MANAGEMENT.
--- NOTE | 2023-05-23 22:11 | NUR ---
CHANGE IN CONDITION AT 1922 PATIENT HAD A 5.7 SECOND PAUSE AND CONVERTED FROM AFIB TO A JUNCTIONAL RHYTHM IN THE 30'S. UPON ARRIVAL TO THE PATIENT'S ROOM THE AMIODARONE DRIP WAS STOPPED. THE PATIENT REPORTED DIZZINESS AND CRUSHING CHEST PAIN. THIS RN PERFORMED AN EKG AND NOTIFIED DR SALVADOR. SHE ORDERED TROPONIN Q2 X3, CARDIOLOGY CONSULT, AND FOR THE PATIENT TO BE NPO. FIRST TROPONIN DRAWN AT 1999. DR SALVADOR CAME TO BEDSIDE TO ASSESS PATIENT, 0.5 MG IV ATROPINE ADMINISTERED AT 2009, PATIENT PLACED ON PACER PADS WITH ZOLL AT BEDSIDE, AND LR BOLUS STARTED. PATIENT'S HEART RATE INCREASED TO THE 50'S AFTER THE ATROPINE WAS ADMINISTERED. TRACTOR DRIVER LASHAWN TO BEDSIDE WELL, PATIENT STILL COMPLAINING OF CHEST PAIN AND DIFFICULTY BREATHING. PATIENT HYPOTENSIVE. ORDER GIVEN TO TRANSFER PATIENT TO ICU. PATIENT TRANSFERRED AT 2099, REPORT GIVEN AT BEDSIDE TO LASHAWN PEREZ FOR ASSUMPTION OF CARE.
--- NOTE | 2023-05-23 23:11 | NUR ---
UPDATE PT FEELING NAUSEATED; MEDICATED PER EMAR. DOPAMINE ON SB D/T ELEVATED BLOOD PRESSURE.
[2023-05-24] VITALS (57 sets, daily range): BP systolic 80–176; BP diastolic 35–101
[2023-05-24 03:49] LABS: Hematocrit 28.5 % (37.0-53.0); Hemoglobin 8.8 g/dL (13.5-17.5); Mean Platelet Volume 8.8 fL (9.1-12.4); Platelet Count 111 K/mm3 (150-400)
[2023-05-24 05:55] LABS: Albumin, Blood 2.8 g/dL (3.4-5.0); Albumin/Globulin Ratio 0.7 (0.8-1.8); Bilirubin, Total 0.4 mg/dL (0.1-1.0); Bun/Creatinine Ratio 17.2 (12.0-20.0); Calcium, Blood 8.4 mg/dL (8.5-10.1); Creatinine, Blood 1.45 mg/dL (0.60-1.20); Globulin, Blood 4.2 g/dL (2.2-4.0); Potassium, Blood 4.6 mmol/L (3.5-5.5)
--- NOTE | 2023-05-24 05:58 | NUR ---
SHIFT SUMMARY PT REMAINS A&O X4; SPO2 >92% ON 3L NC; MAP >65; HR IN THE 60-70'S. DOPAMINE AND HEPARIN GTT INFUSING PER ORDER (SEE FLOWSHEET). NO ACUTE EVENTS SINCE PREVIOUS NOTE. PT RESTING QUIETLY; DENIES CP, SOB, AND NAUSEA. STATES HE FEELS "GOOD".
[2023-05-24 08:10] LABS: Digoxin (Lanoxin) 1.09 ug/mL (0.80-2.00)
--- NOTE | 2023-05-24 10:14 | NUR ---
ASSUMPTION OF CARE REPORT RECEIVED FROM NOC RN. PT RESTING IN BED, UPON ASSESSMENT AROUND 0700 PT ALERT AND ORIENTED X 4. PT ABLE TO ANSWER ALL QUESTIONS, FOLLOW COMMANDS, AND MAKE NEEDS KNOWN. HR 50'S UPON INITIAL ASSESSMENT WITH DOPAMINE INFUSING THROUGH MEDIPORT TO THE RIGHT CHEST AT 1MCG/KG/MIN. AROUND 0900 PT HR DECREASED TO THE 40'S SINUS TU, DOPAMINE INCREASED TO 4MCG/KG/MIN, HR NOW IN THE 60'S-70'S NSR. MAP >65, SBP 111 AT THIS TIME. PT DENIES CHEST PAIN OR SOB. LUNG SOUNDS CLEAR, PT ON 3 LPM VIA NC, OXYGEN SATURATION > 95%. ABDOMEN SOFT NONTENDER, PT HAD ONE BOUT OF NAUSEA WHEN MOVING IN BED, WHICH RESOLVED QUICKLY. PT USES URINAL TO VOID. MEDIPORT ACCESSED INFUSING DOPAMINE AND NS TKO. PIV TO LEFT HAND SL. SPLINT IN PLACE TO LLE FOR FX. PT COMPLAINING OF 9/10 PAIN, MEDICATED WITH TRAMADOL PER EMAR, PAIN DECREASED TO ACCEPTABLE LEVEL OF 6. DR. AMBROCIO AT BEDSIDE TO DISCUSS PT CONDITION AND POSSIBLE PACEMAKER PLACEMENT FOR TACHY/TU SYNDROME, SURGERY TO TAKE PLACE TODAY AROUND 1200. BED IN LOWEST POSITION, CALL LIGHT WITHIN REACH. CARE CONTINUES.
--- NOTE | 2023-05-24 16:21 | NUR ---
PT UPDATE PT BACK TO ICU ROOM POST PACEMAKER PLACEMENT. PT ALERT AND ORIENTED X 4. VS STABLE. PT ATRIAL PACED RATE 60-70'S SR, MAP > 65. CHEST X-RAY COMPLETE. SLING AND ICE PACK IN PLACE. DRESSING OVER PACEMAKER PLACEMENT SITE C/D/I. DR. FRENCH CALLED, OKAY TO DOWNGRADE TO MEDICAL WITH TELE PER DR. FRENCH AND DR. ONEIL.
--- NOTE | 2023-05-24 18:20 | NUR ---
SHIFT SUMMARY PT RESTING IN BED. ALERT AND ORIENTED X 4, PT ABLE TO ANSWER QUESTIONS AND MAKE NEEDS KNOWN. PT S/P PACEMAKER PLACEMENT, DUAL CHAMBER, MODE: DDD, LOWER LIMIT 60, UPPER TACHY LIMIT 130. HR CURRENTLY 60-70'S SINUS WITH OCCASIONAL ATRIAL PACED BEATS. MAP > 65. SLING IN PLACE TO LUE. PT DENIES CHEST PAIN. LUNG SOUNDS CLEAR, PT ON RA, OXYGEN SATURATION > 95%. PT USES URINAL TO VOID. MEDIPORT TO RIGHT UPPER CHEST INFUSING NS TKO. PIV TO LEFT HAND SL. SPLINT IN PLACE TO LLE. BED IN LOWEST POSITION, CALL LIGHT WITHIN REACH.
--- NOTE | 2023-05-24 19:00 | NUR ---
ASSUMED CARE OF PT AT 1900 PT RESTING IN BED WITH SPOUSE AT SIDE DURING BEDSIDE SHIFT REPORT. PT IS ABLE TO MAKE NEEDS KNOWN. VITALS WNL AT THIS TIME. SEE FULL ASSESSMENT FOR DETAILS.
[2023-05-25] VITALS (7 sets, daily range): BP systolic 35–154; BP diastolic 13–92
[2023-05-25 04:56] LABS: BASOPHILS ABSOLUTE AUTO 0.01 K/mm3 (0.00-0.23); BASOPHILS PERCENT AUTO 0 % (0-2); EOSINOPHILS ABSOLUTE AUTO 0.02 K/mm3 (0.00-0.68); EOSINOPHILS PERCENT AUTO 1 % (0-6); Hematocrit 26.3 % (37.0-53.0); Hemoglobin 8.1 g/dL (13.5-17.5); IMMATURE GRAN ABSOLUTE AUTO 0.02 K/mm3 (0.00-0.10); IMMATURE GRAN PERCENT AUTO 1 % (0-1); LYMPHOCYTES ABSOLUTE AUTO 0.25 K/mm3 (0.84-5.20); LYMPHOCYTES PERCENT AUTO 8 % (21-46); MONOCYTES ABSOLUTE AUTO 0.32 K/mm3 (0.16-1.47); MONOCYTES PERCENT AUTO 10 % (4-13); Mean Corpuscular HGB 24.8 pg (26.0-34.0); Mean Corpuscular HGB Conc 30.8 g/dL (31.5-36.5); Mean Corpuscular Volume 80 fL (80-100); Mean Platelet Volume 9.5 fL (9.1-12.4); NEUTROPHILS ABSOLUTE AUTO 2.46 K/mm3 (1.96-9.15); NEUTROPHILS PERCENT AUTO 80 % (41-73); Platelet Count 98 K/mm3 (150-400); RDW Coefficient Variation 16.6 % (11.7-14.2); Red Blood Cell Count 3.27 M/mm3 (4.30-5.90); White Blood Cell Count 3.08 K/mm3 (4.00-11.30)
[2023-05-25 05:24] LABS: Albumin, Blood 2.8 g/dL (3.4-5.0); Albumin/Globulin Ratio 0.7 (0.8-1.8); Bilirubin, Total 0.5 mg/dL (0.1-1.0); Bun/Creatinine Ratio 20.7 (12.0-20.0); Calcium, Blood 8.6 mg/dL (8.5-10.1); Creatinine, Blood 1.4 mg/dL (0.60-1.20); Globulin, Blood 4.2 g/dL (2.2-4.0); Potassium, Blood 4.2 mmol/L (3.5-5.5)
--- NOTE | 2023-05-25 05:56 | NUR ---
END OF SHIFT SUMMARY PT CONTINUES A/O X4. SPOUSE AT BEDSIDE. RESP- 2 LPM NC WHEN SLEEPING. LUNGS CLEAR. CARDIAC- NO ACUTE CHANGES THIS SHIFT. SR WITH HR 65-75. GI,- PT IS INDEPENDENT WITH EATING AND DRINKING. USES URINAL FREQUENTLY. WILL CONTINUE TO MONITOR UNTIL REPORT GIVEN TO AM RN.
--- NOTE | 2023-05-25 08:55 | NUR ---
ASSUMPTION OF CARE REPORT RECEIVED FROM [facility] RN. PT RESTING IN BED, ALERT AND ORIENTED X4. PT ABLE TO ANSWER QUESTIONS, FOLLOW COMMANDS, AND MAKE NEEDS KNOWN. S/P PACEMAKER PLACEMENT, HR 60-70'S SINUS WITH SOME ATRIAL PACED BEATS, MAP > 65. PACEMAKER DRESSING C/D/I PT DENIES CHEST PAIN, HOWEVER THERE IS PAIN AT THE INCISION SITE, MEDICATED PER EMAR. PT ON RA, OXYGEN SATURATION >95% PT DENIES SOB. PT USES URINAL TO VOID. SLING IN PLACE TO LUE S/P PACEMAKER. SPLINT TO LLE, TOES WARM WITH CAP REFILL <3 SECONDS. PIV TO LEFT HAND. MEDIPORT TO LEFT CHEST INFUSING NS TKO, TEGADERM IN PLACE. BED IN LOWEST POSITION, CALL LIGHT WITHIN REACH, CARE CONTINUES.
--- NOTE | 2023-05-25 10:15 | NUR ---
TRANSFER NOTE: Pt arrived to room PCU 2 from ICU via bed. Pt A/Ox4. States that he is having 5/10 pain in his L chest wall, L arm, L leg. Imobilizer to L arm in place and splint/kalani wrap to L Leg in place. Dressing to L chest wall clean and dry. No bruising, swelling noted. BP stable, HR reg, shows NSR in the 70's. NO pacer spikes seen at this time. LS diminished in R base. Pt has occasional cough that is productive. BT positive. Abd slightly distended. Pulses palp. Denies numbness or tingling. Pt oriented to room, unit and call light. Denies questions or needs. Stable at this time.
[2023-05-25] MEDS ORDERED: METO25ER PO (14:04)
[2023-05-25] MEDS ORDERED: OXAYDO5 M2 PO (14:06)
[2023-05-25] MEDS ORDERED: CEPH500 PO (14:07)
[2023-05-25] MEDS ORDERED: DOCU100 PO (14:07)
[2023-05-25] MEDS ORDERED: Prinivil10 MG PO (14:08)
[2023-05-25] MEDS ORDERED: DULCOLAX400 MG/5 M PO (14:08)
[2023-05-25] MEDS ORDERED: SENN187 PO (14:09)
[2023-05-25] MEDS ORDERED: MOTION RELIEF25 MG PO (14:09)
[2023-05-25] MEDS ORDERED: CLOP75 PO (14:10)
[2023-05-25 14:40] LABS: SARS-Cov-2 (COVID-19) PCR, MMC NEGATIVE (NEGATIVE)
--- NOTE | 2023-05-25 15:45 | NUR ---
DISCHARGE NOTE: Pt given verbal and written discharge. Denies questions. Mediport deaccessed after heparin lock, see emar. Pt up to w/c with 2 assist and left via ambulance to [facility]. Stable at time of discharge. Report given to [facility] RN.
== END 2023-05-25 15:45 | disposition home or self-care (01) | DRG 243 ==
LOC: ER 21:30 → PCU 21:31 → ICUE 05-23 15:04 → PCU 05-23 15:04 → ICUE 05-23 20:55 → PCU 05-25 09:42
PROVIDERS: Emergency Medicine; Family Medicine; Internal Medicine; Internal Medicine Cardiovascular Disease; ADMIT Internal Medicine
PROC: 0JH606Z Insertion of Pacemaker, Dual Chamber into Chest Subcutaneous Tissue and Fascia, Open Approach (ICD-10-PCS; principal; 2023-05-24)
PROC: 02H63JZ Insertion of Pacemaker Lead into Right Atrium, Percutaneous Approach (ICD-10-PCS; 2023-05-24)
PROC: 02HK3JZ Insertion of Pacemaker Lead into Right Ventricle, Percutaneous Approach (ICD-10-PCS; 2023-05-24)
DX: I49.5 Sick sinus syndrome (principal); C22.0 Liver cell carcinoma; D61.818 Other pancytopenia; I13.0 Hypertensive heart and chronic kidney disease with heart failure and stage 1 through stage 4 chronic kidney disease, or unspecified chronic kidney disease; I50.32 Chronic diastolic (congestive) heart failure; I48.20 Chronic atrial fibrillation, unspecified; I48.92 Unspecified atrial flutter; I48.0 Paroxysmal atrial fibrillation; E11.22 Type 2 diabetes mellitus with diabetic chronic kidney disease; Z66 Do not resuscitate; K21.9 Gastro-esophageal reflux disease without esophagitis; F41.9 Anxiety disorder, unspecified; J44.9 Chronic obstructive pulmonary disease, unspecified; N18.2 Chronic kidney disease, stage 2 (mild); E78.5 Hyperlipidemia, unspecified; S92.2 Fracture of other and unspecified tarsal bone(s); E11.65 Type 2 diabetes mellitus with hyperglycemia; M54.12 Radiculopathy, cervical region; G89.4 Chronic pain syndrome; K74.60 Unspecified cirrhosis of liver; I25.10 Atherosclerotic heart disease of native coronary artery without angina pectoris; F43.10 Post-traumatic stress disorder, unspecified; D63.1 Anemia in chronic kidney disease; B19.20 Unspecified viral hepatitis C without hepatic coma; W18.30XA Fall on same level, unspecified, initial encounter; E11.40 Type 2 diabetes mellitus with diabetic neuropathy, unspecified; I45.5 Other specified heart block; G40.909 Epilepsy, unspecified, not intractable, without status epilepticus; R29.6 Repeated falls; Z88.5 Allergy status to narcotic agent; Z88.1 Allergy status to other antibiotic agents; Z91.038 Other insect allergy status; Z79.02 Long term (current) use of antithrombotics/antiplatelets; Z79.899 Other long term (current) drug therapy; Z79.811 Long term (current) use of aromatase inhibitors; Z99.81 Dependence on supplemental oxygen; Z98.890 Other specified postprocedural states; Z90.49 Acquired absence of other specified parts of digestive tract; Z87.891 Personal history of nicotine dependence; I25.2 Old myocardial infarction; Z86.73 Personal history of transient ischemic attack (TIA), and cerebral infarction without residual deficits; Z87.19 Personal history of other diseases of the digestive system; Z11.52 Encounter for screening for COVID-19
CPT/HCPCS: 33208; 36415; 71045; 73630; 76937; 80053; 80061; 80162; 82947; 83036; 83735; 84443; 84484; 85014; 85018; 85025; 85049; 85520; 85610; 85730; 93005; 93010; 93308; 93321; 94640; 94664; 94760; 94762; 96365; 96366; 96374; 96375; 96376; 97110; 97162; 97166; 97530; 99152; 99153; 99285-25; A9270; C1769; C1785; C1894; C1898; C9113; G0378; J0282; J0461; J0690; J1160; J1265; J1642; J1644; J1815; J2250; J2270; J2405; J3010; J7030; J7040; J7060; J7120; U0002

== ENCOUNTER 2023-06-21 15:59 | Inpatient (IN) | payer OTHER ==
[~2023-06-21] VITALS: Ht 177.8 cm; Wt 81.5 kg
[~2023-06-21 15:59] MED LIST changes: +ACET325 PO; +CEPH500 PO; +DOCU100 PO; +DULCOLAX400 MG/5 M PO; +METO100ER PO; +MOTION RELIEF25 MG PO; +OXAYDO5 M2 PO; +PANT40 PO; +Prinivil10 MG PO; +SENN187 PO
[2023-06-21 17:37] LABS: BASOPHILS ABSOLUTE AUTO 0.03 K/mm3 (0.00-0.23); BASOPHILS PERCENT AUTO 1 % (0-2); EOSINOPHILS ABSOLUTE AUTO 0.09 K/mm3 (0.00-0.68); EOSINOPHILS PERCENT AUTO 3 % (0-6); Hematocrit 30.8 % (37.0-53.0); Hemoglobin 9.1 g/dL (13.5-17.5); IMMATURE GRAN ABSOLUTE AUTO 0.01 K/mm3 (0.00-0.10); IMMATURE GRAN PERCENT AUTO 0 % (0-1); LYMPHOCYTES ABSOLUTE AUTO 0.32 K/mm3 (0.84-5.20); LYMPHOCYTES PERCENT AUTO 10 % (21-46); MONOCYTES PERCENT AUTO 9 % (4-13); Mean Corpuscular HGB 24.6 pg (26.0-34.0); Mean Corpuscular HGB Conc 29.5 g/dL (31.5-36.5); Mean Corpuscular Volume 83 fL (80-100); Mean Platelet Volume 9.9 fL (9.1-12.4); NEUTROPHILS ABSOLUTE AUTO 2.62 K/mm3 (1.96-9.15); NEUTROPHILS PERCENT AUTO 78 % (41-73); Platelet Count 112 K/mm3 (150-400); RDW Coefficient Variation 17.2 % (11.7-14.2); RDW Standard Deviation 51.9 fL (35.1-46.3); White Blood Cell Count 3.37 K/mm3 (4.00-11.30)
[2023-06-21 17:46] LABS: Albumin, Blood 2.8 g/dL (3.4-5.0); Albumin/Globulin Ratio 0.6 (0.8-1.8); Bilirubin, Total 0.3 mg/dL (0.1-1.0); Bun/Creatinine Ratio 12.7 (12.0-20.0); Calcium, Blood 8.5 mg/dL (8.5-10.1); Creatinine, Blood 1.18 mg/dL (0.60-1.20); Globulin, Blood 4.4 g/dL (2.2-4.0); Magnesium, Blood 2.3 mg/dL (1.6-2.4); Potassium, Blood 4.7 mmol/L (3.5-5.5); Total Protein, Blood 7.2 g/dL (6.4-8.2)
[2023-06-21 18:05] LABS: Influenza A, PCR NEGATIVE (NEGATIVE); Influenza B, PCR NEGATIVE (NEGATIVE); Resp Syncytial Virus, PCR NEGATIVE (NEGATIVE); SARS-Cov-2 (COVID-19) PCR, MMC NEGATIVE (NEGATIVE)
[2023-06-21 22:03] VITALS: BP 104/79
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
[2023-06-22] VITALS (9 sets, daily range): BP systolic 95–128; BP diastolic 62–84
--- NOTE | 2023-06-22 06:35 | NUR ---
SHIFT SUMMARY PATIENT ALERT AND ORIENTED X4. STAND BY ASSIST TO THE BEDSIDE COMMODE. HAD NO COMPLAINTS OF PAIN OR SHORTNESS OF BREATH. ON HOME DOSE OF OXYGEN AT 2 LITERS O2 VIA NC SATING HIGH 90'S. BLOOD PRESSURE STABLE, CONTINUES ON CARDIZEM DRIP, CURRENTLY AT 10. NO ACUTE ISSUES NOTED OVERNIGHT. WILL CONTINUE TO MONITOR. CALL LIGHT WITHIN REACH.
--- NOTE | 2023-06-22 18:15 | NUR ---
PT SUMMARY: PT REMAINS ON CARDIZEM GTT AT 10MG/HR VIA MEDIPORT DOSE OF METOPROLOL 25MG XL CHANGED TO BID. PT'S VITALS HRR AFIB/VPACED 100-120'S, HRR INCREASES WITH EXERTION, SBP 117, SATS ABOVE 94% ON RA, AFEBRILE. HAS BEEN IN THE ROOM MOST OF THE DAY AWARE OF THE PLAN OF CARE. PT HAS BEEN AMBULATING TO THE [facility]. PT ABLE TO MAKE NEEDS KNOWN, HAS BEEN CALLING APPROPRIATELY. DENIES CHEST PAIN/PRESSURE. 2L OF O2 ON STANDBY PRN FOR SLEEP. NO OTHER ISSUES ENCOUNTERED FOR THE SHIFT, CALL LIGHTS IN REACH WILL REPORT TO ONCOMING SHIFT
[2023-06-23] VITALS (7 sets, daily range): BP systolic 93–127; BP diastolic 67–89
[2023-06-23 03:47] LABS: BASOPHILS ABSOLUTE AUTO 0.04 K/mm3 (0.00-0.23); BASOPHILS PERCENT AUTO 1 % (0-2); EOSINOPHILS ABSOLUTE AUTO 0.07 K/mm3 (0.00-0.68); EOSINOPHILS PERCENT AUTO 2 % (0-6); Hematocrit 30.6 % (37.0-53.0); Hemoglobin 9.1 g/dL (13.5-17.5); IMMATURE GRAN ABSOLUTE AUTO 0.01 K/mm3 (0.00-0.10); IMMATURE GRAN PERCENT AUTO 0 % (0-1); LYMPHOCYTES ABSOLUTE AUTO 0.51 K/mm3 (0.84-5.20); LYMPHOCYTES PERCENT AUTO 15 % (21-46); MONOCYTES ABSOLUTE AUTO 0.31 K/mm3 (0.16-1.47); MONOCYTES PERCENT AUTO 9 % (4-13); Mean Corpuscular HGB Conc 29.7 g/dL (31.5-36.5); Mean Corpuscular Volume 81 fL (80-100); Mean Platelet Volume 9.3 fL (9.1-12.4); NEUTROPHILS ABSOLUTE AUTO 2.43 K/mm3 (1.96-9.15); NEUTROPHILS PERCENT AUTO 72 % (41-73); Platelet Count 108 K/mm3 (150-400); RDW Coefficient Variation 17.3 % (11.7-14.2); RDW Standard Deviation 51.1 fL (35.1-46.3); Red Blood Cell Count 3.79 M/mm3 (4.30-5.90); White Blood Cell Count 3.37 K/mm3 (4.00-11.30)
[2023-06-23 04:14] LABS: Albumin, Blood 2.5 g/dL (3.4-5.0); Anion Gap 4 mmol/L (6-16); Blood Urea Nitrogen 17 mg/dL (8-24); Bun/Creatinine Ratio 12.7 (12.0-20.0); CO2, Blood 29 mmol/L (21-32); Calcium, Blood 8.5 mg/dL (8.5-10.1); Chloride, Blood 111 mmol/L (98-108); Creatinine, Blood 1.34 mg/dL (0.60-1.20); Glomerular Filtration Rate 56 (60-); Glucose, Blood 180 mg/dL (70-99); Phosphorus, Blood 3.5 mg/dL (2.5-4.9); Sodium, Blood 144 mmol/L (136-145)
--- NOTE | 2023-06-23 06:03 | NUR ---
SHIFT SUMMARY PATIENT ALERT AND ORIENTED X4. 1 ASSIST TO THE RESTROOM. HAD NO COMPLAINTS OF CHEST PAIN OR SHORTNESS OF BREATH. ON HOME DOSE 02 SATING HIGH 90'S. BLOOD PRESSURE STABLE. PATIENT CONTINUES IN AFIB/FLUTTER RHYTHM, CURRENTLY OFF THE CARDIZEM DRIP WITH HEART RATE IN 110'S. WILL CONTINUE TO MONITOR. CALL LIGHT WITHIN REACH.
--- NOTE | 2023-06-23 17:54 | NUR ---
PT HAS BEEN IN A-FLUTTER T/O THE DAY WITHOUT CHEST PAIN. METOPROLOL DOSE INCREASED TONIGHT AND HE IS STARTED ON AMIODERONE DRIP THIS EVENING. AFTER AMIODERONE BOLUS IS COMPLETE PT'S CALLS FOR HELP SHE STATES THAT PATIENT HAD AN LOC. MULTIPLE STAFF TO ROOM, PT NOTED TO BE AWAKE, VERY SLOW TO ANSWER WHEN NAME CALLED, PT WAS PALE, VSS, AMIODERONE IS STOPPED I WALKED INTO ROOM. DR ALLISON WAS ON THE UNIT HE WAS CALLED TO THE ROOM, A REPEAT EKG WAS PERFORMED WITH DID NOT SHOW CHANGE, TELE ALSO SHOWS NO CHANGE. LUNG SOUNDS HAVE NOT CHANGED, NO EXTRA HEART SOUNDS NOTED. DR ALLISON TO ROOM FOR ASSESSMENT, NEW ORDERS PROVIDED TO STAFF, HE HAS ME RESUME AMIODERONE WHICH WAS IMMEDIATELY RESTARTED WHEN DR ALLISON ASKED. WITHIN A FEW MINUTES PT IS BACK TO NEURO BASELINE, HE IS LAUGHING AND JOKING. HE WAS PLACED BACK ON OXYGEN WHEN I ENTERED ROOM, HE REPORTS THAT OXYGEN SEEMS TO BE HELPING WITH SHORTNESS OF BREATH, HE REPORTS CHEST PAIN ACROSS CHEST THAT IS ALSO IMPROVING.
[2023-06-23] MEDS ORDERED: GABA300 PO (21:14)
[2023-06-23] MEDS ORDERED: ALBU90OI INH (23:16)
[2023-06-23] MEDS ORDERED: BACL10 PO (23:17)
[2023-06-23] MEDS ORDERED: DULO60 PO (23:21)
[2023-06-23] MEDS ORDERED: DOC250 PO (23:21)
[2023-06-23] MEDS ORDERED: FURO20 PO (23:31)
[2023-06-23] MEDS ORDERED: FLUT1DIS2 INH (23:31)
[2023-06-24 01:57] VITALS: BP 107/81
[2023-06-24 03:46] VITALS: BP 97/59
--- NOTE | 2023-06-24 06:21 | NUR ---
SHIFT SUMMARY PATIENT ALERT AND ORIENTED X4. PATIENT FELL IN THE BATHROOM HE WAS SITTING DOWN ON THE TOILET AT 2335. NO INJURIES NOTED. PATIENT CONTINUES ON AMIODORONE DRIP RUNNING AT 16.7 ML/HR. VITAL SIGNS STABLE. DENIES CHEST PAIN AND SHORTNESS OF BREATH. WILL CONTINUE TO MONITOR. CALL LIGHT WITHIN REACH.
[2023-06-24 08:00] VITALS: BP 112/80
[2023-06-24 11:35] VITALS: BP 118/87
[2023-06-24] MEDS ORDERED: AMIODARONE HCL200 M1 PO (13:11)
[2023-06-24] MEDS ORDERED: Acetaminophen650 M1 PO (13:11)
[2023-06-24] MEDS ORDERED: DILT30 PO (13:12)
--- NOTE | 2023-06-24 14:29 | NUR ---
PT WAS D/C TO HOME. MEDICATIONS SENT TO [facility]. HE EXPRESSED UNDERSTANDING OF DC TEAHCFING AND DENIES FURTHER NEEDS. HE REOIRTS THAT HE AWARE OF FOLLOW UP AND NEED TO BE COMPLIANT WITH MEDCIATIONS AND FOLLOW UP
[2023-06-28] MEDS ORDERED: DILT30 PO (12:50)
== END 2023-06-24 14:26 | disposition home health service (06) | DRG 308 ==
LOC: ER 15:59 → PCU 16:00 → ERHOLD 16:00 → PCU 16:00 → ERHOLD 21:50 → PCU 21:50 → ERHOLD 06-22 15:41 → PCU 06-22 15:41
PROVIDERS: Emergency Medicine; Family Medicine; ADMIT Internal Medicine
PROC: 4B02XSZ Measurement of Cardiac Pacemaker, External Approach (ICD-10-PCS; principal; 2023-06-23)
DX: I48.92 Unspecified atrial flutter (principal); I50.33 Acute on chronic diastolic (congestive) heart failure; D61.818 Other pancytopenia; I13.0 Hypertensive heart and chronic kidney disease with heart failure and stage 1 through stage 4 chronic kidney disease, or unspecified chronic kidney disease; K76.6 Portal hypertension; I49.5 Sick sinus syndrome; K74.69 Other cirrhosis of liver; J44.9 Chronic obstructive pulmonary disease, unspecified; Z66 Do not resuscitate; E78.5 Hyperlipidemia, unspecified; F41.9 Anxiety disorder, unspecified; G89.4 Chronic pain syndrome; I25.10 Atherosclerotic heart disease of native coronary artery without angina pectoris; F32.A Depression, unspecified; F43.10 Post-traumatic stress disorder, unspecified; I48.20 Chronic atrial fibrillation, unspecified; E11.22 Type 2 diabetes mellitus with diabetic chronic kidney disease; N18.30 Chronic kidney disease, stage 3 unspecified; G40.909 Epilepsy, unspecified, not intractable, without status epilepticus; K21.9 Gastro-esophageal reflux disease without esophagitis; I25.2 Old myocardial infarction; Z99.81 Dependence on supplemental oxygen; Z79.02 Long term (current) use of antithrombotics/antiplatelets; Z86.19 Personal history of other infectious and parasitic diseases; Z85.05 Personal history of malignant neoplasm of liver; Z92.3 Personal history of irradiation; Z45.018 Encounter for adjustment and management of other part of cardiac pacemaker; Z88.8 Allergy status to other drugs, medicaments and biological substances; Z88.5 Allergy status to narcotic agent; Z88.1 Allergy status to other antibiotic agents; Z79.84 Long term (current) use of oral hypoglycemic drugs; Z79.51 Long term (current) use of inhaled steroids; Z87.891 Personal history of nicotine dependence; Z11.52 Encounter for screening for COVID-19; Z86.73 Personal history of transient ischemic attack (TIA), and cerebral infarction without residual deficits; Z79.891 Long term (current) use of opiate analgesic
CPT/HCPCS: 0241U; 71046; 71260; 80053; 80069; 82947; 83735; 83880; 84443; 84484; 85025; 85379; 93005; 93010; 94640; 94664; 94760; 96365-59; 96366; 96375; 96376-59; 99285-25; A9270; G0378; J0282; J1642; J1940; J7050; J7060; Q9967

== ENCOUNTER 2023-06-28 09:51 | Emergency (ER) | payer OTHER ==
[~2023-06-28] VITALS: Ht 180.3 cm; Wt 77.6 kg
[~2023-06-28 09:51] MED LIST changes: +ALBU90OI INH; +AMIODARONE HCL200 M1 PO; +Acetaminophen650 M1 PO; +DILT30 PO; +DOC250 PO; +DULO60 PO; +FLUT1DIS2 INH; +FURO20 PO
[2023-06-28 10:47] LABS: BASOPHILS ABSOLUTE AUTO 0.04 K/mm3 (0.00-0.23); BASOPHILS PERCENT AUTO 1 % (0-2); EOSINOPHILS ABSOLUTE AUTO 0.11 K/mm3 (0.00-0.68); EOSINOPHILS PERCENT AUTO 2 % (0-6); Hematocrit 33.1 % (37.0-53.0); Hemoglobin 9.8 g/dL (13.5-17.5); IMMATURE GRAN ABSOLUTE AUTO 0.03 K/mm3 (0.00-0.10); IMMATURE GRAN PERCENT AUTO 1 % (0-1); LYMPHOCYTES ABSOLUTE AUTO 0.41 K/mm3 (0.84-5.20); LYMPHOCYTES PERCENT AUTO 7 % (21-46); MONOCYTES ABSOLUTE AUTO 0.43 K/mm3 (0.16-1.47); MONOCYTES PERCENT AUTO 8 % (4-13); Mean Corpuscular HGB 24.5 pg (26.0-34.0); Mean Corpuscular HGB Conc 29.6 g/dL (31.5-36.5); Mean Corpuscular Volume 83 fL (80-100); Mean Platelet Volume 9.7 fL (9.1-12.4); NEUTROPHILS ABSOLUTE AUTO 4.72 K/mm3 (1.96-9.15); NEUTROPHILS PERCENT AUTO 82 % (41-73); Platelet Count 110 K/mm3 (150-400); RDW Coefficient Variation 17.8 % (11.7-14.2); RDW Standard Deviation 52.8 fL (35.1-46.3); White Blood Cell Count 5.74 K/mm3 (4.00-11.30)
[2023-06-28 11:01] LABS: Bun/Creatinine Ratio 20.5 (12.0-20.0); Calcium, Blood 8.8 mg/dL (8.5-10.1); Creatinine, Blood 1.46 mg/dL (0.60-1.20); Magnesium, Blood 2.8 mg/dL (1.6-2.4); Potassium, Blood 4.7 mmol/L (3.5-5.5)
[2023-06-28] MEDS ORDERED: DILT30 PO ×2 (12:50)
[2023-06-28] MEDS ORDERED: ONDA4ODT MM (12:50)
[2023-06-28 13:34] VITALS: BP 108/84
[2023-07-01] MEDS ORDERED: VISBIOME 112.51 EACH PO ×2 (14:53)
[2023-07-01] MEDS ORDERED: SPIR25 PO ×2 (14:54)
[2023-07-01] MEDS ORDERED: CEFP200 PO ×2 (14:54)
== END 2023-06-28 13:30 | disposition home or self-care (01) ==
LOC: ER 09:51
PROVIDERS: Student in an Organized Health Care Education/Training Program
DX: I48.92 Unspecified atrial flutter (principal); R11.2 Nausea with vomiting, unspecified; I13.0 Hypertensive heart and chronic kidney disease with heart failure and stage 1 through stage 4 chronic kidney disease, or unspecified chronic kidney disease; I50.32 Chronic diastolic (congestive) heart failure; E11.22 Type 2 diabetes mellitus with diabetic chronic kidney disease; N18.9 Chronic kidney disease, unspecified; I48.20 Chronic atrial fibrillation, unspecified; J44.9 Chronic obstructive pulmonary disease, unspecified; Z99.81 Dependence on supplemental oxygen; Z87.891 Personal history of nicotine dependence; K21.9 Gastro-esophageal reflux disease without esophagitis; I25.10 Atherosclerotic heart disease of native coronary artery without angina pectoris; G40.909 Epilepsy, unspecified, not intractable, without status epilepticus; F43.10 Post-traumatic stress disorder, unspecified; G89.4 Chronic pain syndrome; Z95.0 Presence of cardiac pacemaker; Z79.84 Long term (current) use of oral hypoglycemic drugs; Z79.02 Long term (current) use of antithrombotics/antiplatelets; Z79.899 Other long term (current) drug therapy; Z88.1 Allergy status to other antibiotic agents; Z88.5 Allergy status to narcotic agent; Z88.6 Allergy status to analgesic agent; Z91.030 Bee allergy status
CPT/HCPCS: 71045; 80048; 83735; 84484; 85025; 93005; 93010; 93280; 96374; 99284-25; A9270; J1642

== ENCOUNTER 2023-06-30 09:50 | Observation (INO) | payer OTHER ==
[~2023-06-30] VITALS: Ht 172.7 cm; Wt 80.7 kg
[2023-06-30 10:50] LABS: BASOPHILS ABSOLUTE AUTO 0.06 K/mm3 (0.00-0.23); BASOPHILS PERCENT AUTO 1 % (0-2); EOSINOPHILS ABSOLUTE AUTO 0.05 K/mm3 (0.00-0.68); EOSINOPHILS PERCENT AUTO 1 % (0-6); Hematocrit 35.6 % (37.0-53.0); Hemoglobin 10.6 g/dL (13.5-17.5); IMMATURE GRAN ABSOLUTE AUTO 0.03 K/mm3 (0.00-0.10); IMMATURE GRAN PERCENT AUTO 0 % (0-1); LYMPHOCYTES ABSOLUTE AUTO 1.24 K/mm3 (0.84-5.20); LYMPHOCYTES PERCENT AUTO 12 % (21-46); MONOCYTES PERCENT AUTO 8 % (4-13); Mean Corpuscular HGB 24.6 pg (26.0-34.0); Mean Corpuscular HGB Conc 29.8 g/dL (31.5-36.5); Mean Corpuscular Volume 83 fL (80-100); Mean Platelet Volume 9.5 fL (9.1-12.4); NEUTROPHILS ABSOLUTE AUTO 8.38 K/mm3 (1.96-9.15); NEUTROPHILS PERCENT AUTO 79 % (41-73); Platelet Count 203 K/mm3 (150-400); RDW Coefficient Variation 17.7 % (11.7-14.2); RDW Standard Deviation 53.2 fL (35.1-46.3); Red Blood Cell Count 4.31 M/mm3 (4.30-5.90); White Blood Cell Count 10.56 K/mm3 (4.00-11.30)
[2023-06-30 11:02] LABS: Albumin, Blood 3.1 g/dL (3.4-5.0); Albumin/Globulin Ratio 0.6 (0.8-1.8); Bilirubin, Total 0.8 mg/dL (0.1-1.0); Calcium, Blood 9.3 mg/dL (8.5-10.1); Creatinine, Blood 2.21 mg/dL (0.60-1.20); Globulin, Blood 5.1 g/dL (2.2-4.0); Potassium, Blood 5.2 mmol/L (3.5-5.5); Total Protein, Blood 8.2 g/dL (6.4-8.2)
[2023-06-30 11:20] LABS: International Normalized Ratio 1.31; Prothrombin Time Results 13.5 Sec (9.7-11.5)
[2023-06-30 13:01] LABS: Source, Urine Clean Catch
[2023-06-30 13:05] LABS: Appearance, Urine Clear (Clear); Bilirubin, Urine Neg (Neg); Blood, Urine Neg (Neg); Color, Urine Yellow (P-Yellow); Glucose Qualitative, Urine 4+ (Neg); Ketones, Urine Neg (Neg); Leukocyte Esterase, Urine Neg (Neg); Nitrite, Urine Neg (Neg); Protein, Urine 1+ (Neg); Specific Gravity, Urine 1.015 (1.003-1.022); Urobilinogen, Urine NORM (Normal)
[2023-06-30 16:04] LABS: Automated BF RBC Count 0.017 M/mm3 (0-0); Automated BF WBC Count 0.336 K/mm3 (0-999); Body Fluid WBC Count 336 /mm3 (0-999); RBC Count, Body Fluid 17000 /mm3 (0-0)
[2023-06-30 16:20] LABS: Glucose, Body Fluid 346 mg/dL; Lactate Dehydrogenase, Body Fl 41 U/L; Protein, Body Fluid 1.4 g/dL
[2023-06-30 16:39] LABS: Appearance, Body Fluid Cloudy (Clear); Total Cell Count, Body Fluid 100
[2023-06-30 19:19] VITALS: BP 92/66
[2023-07-01 02:48] VITALS: BP 157/143
[2023-07-01 02:54] VITALS: BP 98/68
[2023-07-01 06:14] LABS: BASOPHILS ABSOLUTE AUTO 0.02 K/mm3 (0.00-0.23); BASOPHILS PERCENT AUTO 1 % (0-2); EOSINOPHILS ABSOLUTE AUTO 0.07 K/mm3 (0.00-0.68); EOSINOPHILS PERCENT AUTO 2 % (0-6); Hematocrit 28.3 % (37.0-53.0); Hemoglobin 8.3 g/dL (13.5-17.5); IMMATURE GRAN ABSOLUTE AUTO 0.01 K/mm3 (0.00-0.10); IMMATURE GRAN PERCENT AUTO 0 % (0-1); LYMPHOCYTES ABSOLUTE AUTO 0.36 K/mm3 (0.84-5.20); LYMPHOCYTES PERCENT AUTO 13 % (21-46); MONOCYTES ABSOLUTE AUTO 0.34 K/mm3 (0.16-1.47); MONOCYTES PERCENT AUTO 12 % (4-13); Mean Corpuscular HGB 24.3 pg (26.0-34.0); Mean Corpuscular HGB Conc 29.3 g/dL (31.5-36.5); Mean Corpuscular Volume 83 fL (80-100); Mean Platelet Volume 9.5 fL (9.1-12.4); NEUTROPHILS ABSOLUTE AUTO 2.07 K/mm3 (1.96-9.15); NEUTROPHILS PERCENT AUTO 72 % (41-73); Platelet Count 101 K/mm3 (150-400); RDW Coefficient Variation 17.5 % (11.7-14.2); RDW Standard Deviation 51.9 fL (35.1-46.3); Red Blood Cell Count 3.42 M/mm3 (4.30-5.90); White Blood Cell Count 2.87 K/mm3 (4.00-11.30)
[2023-07-01 07:07] LABS: Albumin, Blood 2.4 g/dL (3.4-5.0); Bilirubin, Total 0.6 mg/dL (0.1-1.0); Bun/Creatinine Ratio 21.1 (12.0-20.0); Calcium, Blood 8.2 mg/dL (8.5-10.1); Creatinine, Blood 1.75 mg/dL (0.60-1.20); Potassium, Blood 4.2 mmol/L (3.5-5.5)
[2023-07-01 07:08] LABS: Albumin/Globulin Ratio 0.7 (0.8-1.8); Globulin, Blood 3.6 g/dL (2.2-4.0)
--- NOTE | 2023-07-01 07:38 | NUR ---
NEW ADMIT DONT IS AT BEDSIDE NO DISTRESS MINIMAL PAIN NOTED, ADMISSION DONE. RIGHT CHEST WALL PORT ACCESSED AND FUNCTIONING WELL. LABD SENT TO LAB
[2023-07-01 07:40] VITALS: BP 105/75
[2023-07-01] MEDS ORDERED: VISBIOME 112.51 EACH PO (14:53)
[2023-07-01] MEDS ORDERED: CEFP200 PO (14:54)
[2023-07-01] MEDS ORDERED: SPIR25 PO (14:54)
--- NOTE | 2023-07-01 19:37 | NUR ---
SHIFT SUMMARY AND DISCHARGE PATIENT DISCHARGED TO HOME. DISCHARGE INSTRUCTIONS REVIEWED WITH AND PATIENT. MEDIPORT DEACCESSED PER PROTOCOL AND FLUSHED WITH HEPARIN. PATIENT TO RESUME WITH HOME HEALTH. PATIENT DECLINED GOING TO REHAB AFTER PT REFERAL. PATIENT ABLE TO TRANSER TO WHEELCHAIR AND STATES THEY HAVE ASSISTANCE TO GET HIM INTO THE HOME.
== END 2023-07-01 16:42 | disposition home or self-care (01) ==
LOC: ER 09:50 → MEDS 09:51
PROVIDERS: Emergency Medicine; Student in an Organized Health Care Education/Training Program; ADMIT Internal Medicine
DX: K74.60 Unspecified cirrhosis of liver (principal); R18.8 Other ascites; K76.6 Portal hypertension; I48.20 Chronic atrial fibrillation, unspecified; J44.9 Chronic obstructive pulmonary disease, unspecified; E11.9 Type 2 diabetes mellitus without complications; G40.909 Epilepsy, unspecified, not intractable, without status epilepticus; E78.5 Hyperlipidemia, unspecified; K21.9 Gastro-esophageal reflux disease without esophagitis; Z88.5 Allergy status to narcotic agent; Z88.1 Allergy status to other antibiotic agents; Z88.8 Allergy status to other drugs, medicaments and biological substances
CPT/HCPCS: 49082; 49083; 71046; 74177; 80053; 82945; 83615; 83690; 84157; 84484; 85025; 85610; 87070; 87075; 87205; 89051; 93005; 93010; 94640; 94664; 94760; 96365-59; 96366-59; 96375; 96375-59; 96376; 97112; 97162; 97530; 99285-25; A9270; G0378; J0696; J1790; J2405; J7030; Q9967

== ENCOUNTER 2023-07-09 20:46 | Inpatient (IN) | payer OTHER ==
[~2023-07-09] VITALS: Ht 182.9 cm; Wt 60.4 kg
[~2023-07-09 20:46] MED LIST changes: +CEFP200 PO; +SPIR25 PO; +VISBIOME 112.51 EACH PO
[2023-07-09 21:21] LABS: Base Excess Venous -1.5 mmol/L; Bicarbonate Venous 22.7 mmol/L (24.0-30.0); PCO2 Venous 47.8 mmHg (38-42); pH Blood Venous 7.32 (7.34-7.37)
[2023-07-09 21:25] LABS: BASOPHILS ABSOLUTE AUTO 0.04 K/mm3 (0.00-0.23); BASOPHILS PERCENT AUTO 1 % (0-2); EOSINOPHILS ABSOLUTE AUTO 0.17 K/mm3 (0.00-0.68); EOSINOPHILS PERCENT AUTO 4 % (0-6); Hematocrit 30.4 % (37.0-53.0); Hemoglobin 8.9 g/dL (13.5-17.5); IMMATURE GRAN ABSOLUTE AUTO 0.01 K/mm3 (0.00-0.10); IMMATURE GRAN PERCENT AUTO 0 % (0-1); LYMPHOCYTES ABSOLUTE AUTO 0.65 K/mm3 (0.84-5.20); LYMPHOCYTES PERCENT AUTO 14 % (21-46); MONOCYTES ABSOLUTE AUTO 0.47 K/mm3 (0.16-1.47); MONOCYTES PERCENT AUTO 10 % (4-13); Mean Corpuscular HGB Conc 29.3 g/dL (31.5-36.5); Mean Corpuscular Volume 82 fL (80-100); Mean Platelet Volume 10.4 fL (9.1-12.4); NEUTROPHILS ABSOLUTE AUTO 3.41 K/mm3 (1.96-9.15); NEUTROPHILS PERCENT AUTO 72 % (41-73); Platelet Count 168 K/mm3 (150-400); RDW Coefficient Variation 17.6 % (11.7-14.2); RDW Standard Deviation 51.8 fL (35.1-46.3); Red Blood Cell Count 3.71 M/mm3 (4.30-5.90); White Blood Cell Count 4.75 K/mm3 (4.00-11.30)
[2023-07-09 21:46] LABS: Albumin, Blood 2.6 g/dL (3.4-5.0); Albumin/Globulin Ratio 0.6 (0.8-1.8); Bilirubin, Total 0.5 mg/dL (0.1-1.0); Bun/Creatinine Ratio 17.6 (12.0-20.0); Calcium, Blood 8.5 mg/dL (8.5-10.1); Creatinine, Blood 1.36 mg/dL (0.60-1.20); Globulin, Blood 4.7 g/dL (2.2-4.0); Potassium, Blood 5.9 mmol/L (3.5-5.5); Thyroid Stimulating Hormone 1.53 uIU/mL (0.360-4.800); Total Protein, Blood 7.3 g/dL (6.4-8.2)
[2023-07-09 22:10] LABS: International Normalized Ratio 1.09; Prothrombin Time Results 11.4 Sec (9.7-11.5)
[2023-07-09 23:53] LABS: Automated BF RBC Count 0.002 M/mm3 (0-0); Automated BF WBC Count 0.368 K/mm3 (0-999)
[2023-07-09 23:54] LABS: Body Fluid WBC Count 368 /mm3 (0-999); RBC Count, Body Fluid 2000 /mm3 (0-0)
[2023-07-10] VITALS (15 sets, daily range): BP systolic 75–143; BP diastolic 54–120
[2023-07-10 00:11] LABS: Lactate Dehydrogenase, Body Fl 39 U/L; Protein, Body Fluid 1.2 g/dL
[2023-07-10 00:49] LABS: Appearance, Body Fluid Clear (Clear); Color, Body Fluid L Yellow (None-Yellow); Total Cell Count, Body Fluid 100
[2023-07-10] MEDS ORDERED: BACL10 PO (03:16)
[2023-07-10] MEDS ORDERED: DOC250 PO (03:17)
[2023-07-10] MEDS ORDERED: FURO20 PO (03:18)
--- NOTE | 2023-07-10 03:53 | NUR ---
ARRIVAL TO PCU patient arrived to pcu from er at approx 0300. patient transferd from [facility] to pcu bed via slider sheet. patient responds to verbal stimuli but will fall asleep quickly. patient has mummbled speech. perrla. patient oriented 2-3, person, place and self. patient reports no pain, chest pain/pressure or shortness of breath. patient has bruising scattered t/o on extremities, left bottom and left eyelid. patient states he has falls at home. patient abd is distended which patient states normal, active and nontender. patient lungs clear and is on baseline ocygen 2l spo2 >95%. patient tele paced in the 60s. see admit shift assessment for further detials. patient bp soft and this rn called md to inform him that patient has not yet received fluids per order from ER and has been discounted. md solomon said to give fluids. see oders and emar. bolus of normal saline currently infusing. plan is for patient to have paracentesis done in the am. plan of care is up to date.
--- NOTE | 2023-07-10 04:00 | NUR ---
FLUIDS-clarification in the emar thre is an order for normal saline at 500mls/hr for one liter. patient did not recieve this in the er due to albumin infusing. this rn called md solomon due to order being discontinued and told md the patients current blood pressure. a bolus of normal saline order and infusing currently
[2023-07-10 04:18] LABS: Albumin, Blood 3.3 g/dL (3.4-5.0); Albumin/Globulin Ratio 0.8 (0.8-1.8); Bilirubin, Total 0.5 mg/dL (0.1-1.0); Bun/Creatinine Ratio 18.3 (12.0-20.0); Calcium, Blood 8.5 mg/dL (8.5-10.1); Creatinine, Blood 1.42 mg/dL (0.60-1.20); Globulin, Blood 4.1 g/dL (2.2-4.0); Potassium, Blood 5.6 mmol/L (3.5-5.5); Total Protein, Blood 7.4 g/dL (6.4-8.2)
--- NOTE | 2023-07-10 06:37 | NUR ---
SHIFT SUMMARY bp improved after fluid bolus. no acute changes. see previous notes. plan of care up to date.
--- NOTE | 2023-07-10 16:44 | NUR ---
SHIFT SUMMARY PT REMAINS CONFUSED. PT CONTINUALLY ASKING WHEN HE WILL BE DISCHARGED. PT FALLS ASLEEP MID CONVERSATION WITH STAFF. BP STABLE. HR HAS BEEN PACED. PT TITRATED UP TO 5L NC WITH SATS REMAINING ABOVE 90%. PT PULLS HIS OXYGEN OFF REPEATEDLY AND DESATURATES TO LOW 80'S AND TAKES MINUTES TO RECOVER ONCE O2 IS PUT BACK ON. LS WHEEZES THROUGHOUT. PT DENIES PAIN. PT INCONTINENT OF URINE AT TIMES AND ATTENDS IN PLACE. PT REPOSITIONED Q2H. BED BATH PROVIDED TODAY. WILL CONTINUE TO MONITOR AND REPORT TO ONCOMING RN
[2023-07-11 00:08] VITALS: BP 126/60
[2023-07-11 03:09] VITALS: BP 105/55
[2023-07-11 05:15] LABS: BASOPHILS PERCENT AUTO 0 % (0-2); EOSINOPHILS PERCENT AUTO 0 % (0-6); Hematocrit 25.9 % (37.0-53.0); Hemoglobin 7.5 g/dL (13.5-17.5); IMMATURE GRAN ABSOLUTE AUTO 0.01 K/mm3 (0.00-0.10); IMMATURE GRAN PERCENT AUTO 0 % (0-1); LYMPHOCYTES PERCENT AUTO 8 % (21-46); MONOCYTES ABSOLUTE AUTO 0.22 K/mm3 (0.16-1.47); MONOCYTES PERCENT AUTO 8 % (4-13); Mean Corpuscular HGB 23.6 pg (26.0-34.0); Mean Corpuscular Volume 81 fL (80-100); Mean Platelet Volume 9.7 fL (9.1-12.4); NEUTROPHILS ABSOLUTE AUTO 2.25 K/mm3 (1.96-9.15); NEUTROPHILS PERCENT AUTO 84 % (41-73); Platelet Count 102 K/mm3 (150-400); RDW Coefficient Variation 17.4 % (11.7-14.2); RDW Standard Deviation 52.3 fL (35.1-46.3); Red Blood Cell Count 3.18 M/mm3 (4.30-5.90); White Blood Cell Count 2.68 K/mm3 (4.00-11.30)
[2023-07-11 05:48] LABS: Albumin, Blood 2.8 g/dL (3.4-5.0); Albumin/Globulin Ratio 0.7 (0.8-1.8); Bilirubin, Total 0.5 mg/dL (0.1-1.0); Bun/Creatinine Ratio 21.1 (12.0-20.0); Calcium, Blood 8.3 mg/dL (8.5-10.1); Creatinine, Blood 1.52 mg/dL (0.60-1.20); Total Protein, Blood 6.8 g/dL (6.4-8.2)
--- NOTE | 2023-07-11 06:46 | NUR ---
SHIFT SUMMARY PATIENT ALERT AND ORIENTED X 2. HAD NO COMPLAINTS OF PAIN OR SHORTNESS OF BREATH. PATIENT IS WEAK AND LETHARGIC. HAS BEEN FORGETFUL AND IMPULSIVE, NOT USING THE CALL LIGHT, TRYING TO GET OUT OF BED ON HIS OWN, PULLING O2 AND LINES OFF. REQUIRING INCREASED O2 AT 5 LITERS. BLOOD PRESSURE STABLE, PACED AT 60 ON TELE. WILL CONTINUE TO MONITOR. CALL LIGHT WITHIN REACH.
[2023-07-11 08:31] VITALS: BP 127/97
--- NOTE | 2023-07-11 10:12 | NUR ---
AM NOTES: PT STILL CONFUSED ALERT AND ORIENTED X2-3, FOLLOWS COMMANDS AND ABLE TO MAKE NEEDS KNOWN. ATE BREAKFAST WITH NO ISSUES THIS MORNING GOT UP IN THE NSC 1PA VIA WALKER, HAD A NORMAL BM BROWN IN COLOR, BALE TO USE URINAL WIHT ASSISTANCE. PT SATS >95% ON RA, PT STATED HE USES O2 AT HOME ONL WHEH HE'S SLEEPING. PT BACK IN BED 2L OF O2 ON, SATS REMAINED >95%. VITALS HRR PACED AT 60'S, SBP 120'S, AFEBRILE. DRESSING ON R ABD POST PARACENTESIS REMAINED INTACT. ABD STILL DISTENDED, PT DENIES PAIN/DISCOMFORT. SOME SOB WHEN LAYING FLAT ON THE BACK. NO OTHER ISSUES REPORTED CALL LIGHTS IN REACH WILL CONTINUE TO MONITOR
[2023-07-11 11:25] LABS: Percent Saturation 4.2 % (20.0-50.0)
[2023-07-11 12:24] VITALS: BP 107/63
[2023-07-11 15:20] VITALS: BP 110/61
--- NOTE | 2023-07-11 15:21 | NUR ---
Initialy met with spouse out in [place]. Assisted spouse Leena with doning PPE. Pt resting in bed with his eyes closed. Pt does not want to wake to moderate level of verbal stimuli. No S/S of distress noted at this time. Engaged in therapeutic conversation with spouse Leena regarding code status wishes. Educated on life sustaining treatments including risks and implications to CPR/Intubation. Offered therapeutic listening and answered questions. Leena reports plan to discuss further with Pt when he is awake. Palliative Care will remain available
--- NOTE | 2023-07-11 18:21 | NUR ---
PT SUMMARY: PT ON RA WHEN AWAKE 2L PRN FOR SLEEP SATS KEPT ABOVE 93%, MILD SOB WIHT EXERTION VITALS HAS BEEN STABLE. EPISODES OF CONFUSION, MOSTLY RESPONDS APPROPRIATELY TO QUESTIONS.PT HAS BEEN USING BEDSIDE COMMODE FOR TOILETING CONTINENT CALLS APPROPRIATELY. EATING AND DRINKING WITH NO ISSUES, DENEIS CHEST PAIN/PRESSURE. CAME IN TO VISIT TODAY ABLE TO TALK TO THE INTERACTIVE MULTIMEDIA DESIGNER AND PALLIATIVE CARE NURSE ABOUT PLANS. PT REMAINS FULL CODE AT THIS TIME. PT RECEIVED A BED BATH. NO OTHER ISSUES KREPORTED FR THE SHIFT, PT NOW IN BED RESTING CALL LIGHTS IN REACH WILL MONITOR
[2023-07-11 21:48] VITALS: BP 136/75
[2023-07-11 21:53] LABS: LAMOTRIGINE 20.2 ug/mL (3.0-15.0)
[2023-07-12] VITALS (7 sets, daily range): BP systolic 105–146; BP diastolic 49–107
--- NOTE | 2023-07-12 04:35 | NUR ---
PHYSICIAN COMMUNICATION CONTACTED GRAPHIC DESIGN MANAGER RESIDENT, DR. SALDIVAR, TO NOTIFY HIM THAT THE PATIENT WAS REFUSING LAB DRAW THIS MORNING UNLESS HE COULD GET HIS MEDIPORT ACCESSED. DR SALDIVAR DECLINED PERMISSION TO ACCESS THE PATIENT'S MEDIPORT AND SAID TO REAPPROACH THE PATIENT LATER IN THE MORNING FOR LAB DRAW.
--- NOTE | 2023-07-12 06:38 | NUR ---
SHIFT SUMMARY PATIENT ALERT AND ORIENTED X 3-4, VERY WEAK REQUIRING 2 ASSIST STAND PIVOT TO THE BEDSIDE COMMODE. MENTATION IS CLEARING. PATIENT CONTINUES TO REFUSE LAB DRAW THIS MORNING. ON 3 LITERS O2 WHILE SLEEPING. VITAL SIGNS STABLE. NO ACUTE ISSUES NOTED OVERNIGHT. WILL CONTINUE TO MONITOR. CALL LIGHT WITHIN REACH.
[2023-07-12 09:21] LABS: BASOPHILS ABSOLUTE AUTO 0.01 K/mm3 (0.00-0.23); BASOPHILS PERCENT AUTO 0 % (0-2); EOSINOPHILS PERCENT AUTO 0 % (0-6); Hematocrit 28.8 % (37.0-53.0); Hemoglobin 8.4 g/dL (13.5-17.5); IMMATURE GRAN ABSOLUTE AUTO 0.03 K/mm3 (0.00-0.10); IMMATURE GRAN PERCENT AUTO 0 % (0-1); LYMPHOCYTES ABSOLUTE AUTO 0.29 K/mm3 (0.84-5.20); LYMPHOCYTES PERCENT AUTO 3 % (21-46); MONOCYTES ABSOLUTE AUTO 0.48 K/mm3 (0.16-1.47); MONOCYTES PERCENT AUTO 6 % (4-13); Mean Corpuscular HGB 23.9 pg (26.0-34.0); Mean Corpuscular HGB Conc 29.2 g/dL (31.5-36.5); Mean Corpuscular Volume 82 fL (80-100); Mean Platelet Volume 9.7 fL (9.1-12.4); NEUTROPHILS ABSOLUTE AUTO 7.68 K/mm3 (1.96-9.15); NEUTROPHILS PERCENT AUTO 90 % (41-73); Platelet Count 116 K/mm3 (150-400); RDW Coefficient Variation 17.9 % (11.7-14.2); RDW Standard Deviation 52.4 fL (35.1-46.3); Red Blood Cell Count 3.52 M/mm3 (4.30-5.90); White Blood Cell Count 8.49 K/mm3 (4.00-11.30)
[2023-07-12 09:40] LABS: Albumin/Globulin Ratio 0.8 (0.8-1.8); Bilirubin, Total 0.6 mg/dL (0.1-1.0); Bun/Creatinine Ratio 24.1 (12.0-20.0); Calcium, Blood 8.7 mg/dL (8.5-10.1); Creatinine, Blood 1.33 mg/dL (0.60-1.20); Potassium, Blood 4.8 mmol/L (3.5-5.5)
--- NOTE | 2023-07-12 18:37 | NUR ---
PT SUMMARY: PT HAD CHEST PAIN EPISODE THIS MONRING, THIS RN WAS CALLED INTO PT'S ROOM, PT CALLED TO USE THE REST ROOM AND ENDED UP HAVING A BOWEL ACCIDENT, WHILE FOOD CROPS FARM HAND AND A NURSE CHNAGING THE PT, PT STARTED GETTING ANXIOUS, SOB AND C/O CHEST PAIN, EKG WAS DONE DIDNT SHOW ANY SIGNIFICANT CHANGE, CHEST PAIN RELIVED BY ONE DOSE OF NITRO AND PT DIDNT C/O CP FOR THE REST OF THE SHIFT, TROPONIN NEGATIVE. PROVIDER AWARE. NOT RECOMMENDING GIVING PT SOMETHING FOR ANXIETY OR PAIN AT THIS TIME, SOB MAY BE RELATED TO ASCITES ORDERED US GUIDED PARACENTTESIS, US TECH CALLED TO VERIFY THERE'S ALREADY ONE ORDER FOR THE PT AND IS SCHEDULED FOR MONDAY D/T LAST DOSE OF BLOOD THINNER 07/09/23 HAS TO BE ATLEAST 5 DAYS BEFORE AND AFTER THE PROCEDURE. AMPARO RN MADE AWARE. VITALS HRR PACED AT 60'S, SBP MOSTLY AT 115'S, SATS ABOVE 90% ON 4-6L OF O2, O2 DEMAND HAS INCREASED D/T PT'S SOB CANT TOLERATE LAYING FLAT DESATS TO LOW 80'S, AFEBRILE. PT STILL HAS SOFT LOOSE STOOLS CONTINUES TO RECEIVE LACTULOSE PO. WAS IN TO VISIT COUPLE TIMES TODAY, WAS GIVE UPDATE REGARDING PT'S STATUS. MEDIPORT ACCESSED PT PERIPHERAL IV GOT INFILTRATED AND ALSO PT REQUESTED TO GET HIS MEDIPORT ACCESSED FOR BLOOD DRAWS, RUNNING TKO. PT'S MENTATION HAS IMPROVED OTHERWISE POOR COMPREHENSION/UNDERSTANDING/FORGETFUL. CALLS APPROPRIATELY AND ABLE TO MAKE NEEDS KNOWN. PT WAS BLADDER SCANNED BY THE END OF THE SHIFT HAD >500MLS URINE RETAINED, STRICTLY REFUSED TO GET STRAIGHT CATH, WAS ABLE TO VOID AGAIN AT AROUND 1800, UNMEASURED VOID. NO OTHER ISSUES REPORTED FOR THE SHIFT, WILL REPORT TO ONCOMING SHIFT
[2023-07-13] VITALS (59 sets, daily range): BP systolic 73–140; BP diastolic 35–99
--- NOTE | 2023-07-13 02:40 | NUR ---
CALL TO ATTEMPTED TO CALL PT'S (FRANSISCO) ON PHONE # IN CHART. LEFT VOICEMAIL AND NOTIFIED PRIMARY RN GEORGINA. PT HAS BEEN TRANSFERRED TO ICU.
[2023-07-13 03:24] LABS: PCO2 Arterial 38.5 mmHg (35-45); PO2 Arterial 181 mmHg (80-100)
[2023-07-13 03:25] LABS: BASOPHILS ABSOLUTE AUTO 0.02 K/mm3 (0.00-0.23); BASOPHILS PERCENT AUTO 0 % (0-2); EOSINOPHILS PERCENT AUTO 0 % (0-6); Hematocrit 31.5 % (37.0-53.0); Hemoglobin 8.9 g/dL (13.5-17.5); IMMATURE GRAN ABSOLUTE AUTO 0.13 K/mm3 (0.00-0.10); IMMATURE GRAN PERCENT AUTO 1 % (0-1); LYMPHOCYTES ABSOLUTE AUTO 1.01 K/mm3 (0.84-5.20); LYMPHOCYTES PERCENT AUTO 5 % (21-46); MONOCYTES ABSOLUTE AUTO 1.28 K/mm3 (0.16-1.47); MONOCYTES PERCENT AUTO 6 % (4-13); Mean Corpuscular HGB 23.7 pg (26.0-34.0); Mean Corpuscular HGB Conc 28.3 g/dL (31.5-36.5); Mean Corpuscular Volume 84 fL (80-100); Mean Platelet Volume 10.1 fL (9.1-12.4); NEUTROPHILS ABSOLUTE AUTO 17.42 K/mm3 (1.96-9.15); NEUTROPHILS PERCENT AUTO 88 % (41-73); NRBC ABSOLUTE 0.05 K/mm3 (0.00-0.02); NRBC Auto 0.3 /100 WBC (0.0-0.2); Platelet Count 219 K/mm3 (150-400); RDW Coefficient Variation 17.9 % (11.7-14.2); RDW Standard Deviation 54.5 fL (35.1-46.3); Red Blood Cell Count 3.76 M/mm3 (4.30-5.90); White Blood Cell Count 19.86 K/mm3 (4.00-11.30)
--- NOTE | 2023-07-13 03:32 | NUR ---
PATIENT CAME OFF TELEMETRY AND O2 MONITOR AROUND 0210. WAS GETTING GOWNED UP TO GO INTO THE PATIENT'S ROOM AND HEARD HIM YELLING IN HIS ROOM. WALKED IN TO FIND THE PATIENT PARTIALLY OUT OF BED AND HAD SOILED HIMSELF. THIS RN PLACED THE PATIENT BACK IN BED. THE PATIENT WAS TRAN, THRASHING IN THE BED, AND NOT FOLLOWING DIRECTIONS. PATIENT HAD REMOVED HIS OXYGEN, TELEMETRY, AND OXYGEN MONITOR. CONNECTED HIM BACK TO HIS MONITOR, SPO2 WAS IN THE 50'S. PLACED PATIENT ON A NON-REBREATHER AT 15 LITERS AND PATIENT WAS NOT IMPROVING. RT CALLED TO THE ROOM AND PATIENT WAS PLACED ON BIPAP. ABG AND IV ATTEMPTED WITHOUT SUCCESS PATIENT WAS TOO TENSE. DR SALDIVAR AND DR GARCIA CAME TO THE BEDSIDE TO ASSESS THE PATIENT. DR GARCIA ORDERED FOR THE PATIENT TO BE TRANSFERRED TO ICU AND PLACED ON PRESIDEX, HE ALSO ORDERED FOR THE PATIENT TO BE GIVEN 2 MG IV MORPHINE. MORPHINE ADMINISTERED AT 0236. PATIENT TRANSFERRED TO ICU 12, REPORT GIVEN TO FELIPE IN ICU.
[2023-07-13 03:41] LABS: Bun/Creatinine Ratio 21.6 (12.0-20.0); Calcium, Blood 8.7 mg/dL (8.5-10.1); Creatinine, Blood 1.53 mg/dL (0.60-1.20); Potassium, Blood 5.1 mmol/L (3.5-5.5)
[2023-07-13 05:10] LABS: Source, Urine Foley catheter
[2023-07-13 05:20] LABS: Appearance, Urine Clear (Clear); Bilirubin, Urine Neg (Neg); Blood, Urine Neg (Neg); Color, Urine Yellow (P-Yellow); Glucose Qualitative, Urine 4+ (Neg); Ketones, Urine Neg (Neg); Leukocyte Esterase, Urine Neg (Neg); Nitrite, Urine Neg (Neg); Protein, Urine Neg (Neg); Urobilinogen, Urine NORM (Normal)
[2023-07-13 06:27] LABS: PCO2 Venous 41.2 mmHg (38-42)
[2023-07-13 06:28] LABS: Base Excess Venous -6.3 mmol/L; Bicarbonate Venous 19.6 mmol/L (24.0-30.0)
--- NOTE | 2023-07-13 07:00 | NUR ---
ASSUME CARE: I have assumed care of this patient.
--- NOTE | 2023-07-13 07:29 | NUR ---
PROVIDER UPDATE: Dr Sommers called and updated on hypotension. See new orders.
--- NOTE | 2023-07-13 07:33 | NUR ---
PT ARRIVES EMERGENTLY TO ROOM ICU 12 FROM PCU. PT VERY DYSPNEIC AND THRASHING ABOUT IN BED. PT HAD PREVIOUSLY RECEIVED 2 MG MORPHINE WHILE IN PCU. ADMINISTERED ADDITIONAL 2 MG MORPHINE, AND GAVE 2 MG ATIVAN. THIS DID WELL TO HELP PT CALM SOME. INITIATED PRECEDEX AT 0.5 MCG'S PT HAS REMAINED COMPLIANT WITH BIPAP. GAVE PT 40 MG LASIX PER ORDERS. UPON PRESENTATION, PT HAD TIGHT LUNG SOUNDS WITH RHONCHI. PT RECEIVES IMMEDIATE BREATHING TREATMENT. PT'S BLOOD PRESSURE THIS AM BEGINS TO LOWER. DID GIVE SMALL VOLUME BOLUS TO CORRECT PRESSURES. HAVE DECREASED PRECEDEX DRIP TO ATTEMPT TO ASSIST BLOOD PRESSURES. REPORT GIVEN TO ONCOMING RN.
--- NOTE | 2023-07-13 09:05 | NUR ---
PROVIDER UPDATE: Dr Sommers updated on pt status. He is not alert enough to take PO medications. See new order for levophed.
--- NOTE | 2023-07-13 11:48 | NUR ---
PROVIDER UPDATE: Dr Sommers updated on pt status; pt still obtunded and unable to take PO. RN instructed to give one dose of narcan and administer lactulose via rectal tube.
[2023-07-13 12:22] LABS: Base Excess Venous -4.2 mmol/L; PCO2 Venous 36.3 mmHg (38-42); pH Blood Venous 7.37 (7.34-7.37)
--- NOTE | 2023-07-13 18:52 | NUR ---
SHIFT SUMMARY: After provider's discussion with pt's at bedside and brother over the phone, RN instructed to provide only the care pt is agreeable to receiving. Norepi stopped and BIPAP was removed; if pt fails on NC, staff instructed to change pt to comfort care. Questions and concerns were addressed with patient's at bedside who was very tearful. Kamara and rectal tube removed per pt and family request. Pt no longer yelling out and pulling at tubing once Kamara removed. Brother, Meek Terry, would like to be called with any changes [phone]
--- NOTE | 2023-07-13 19:15 | NUR ---
ASSUMPTION OF CARE: RECEIVED REPORT FROM CIRILO PEREZ. PT ALERT AND ORIENTED TO PERSON AND PLACE. ABLE TO ANSWER SOME SIMPLE QUESTIONS AND FOLLOW SOME SIMPLE COMMANDS. PT APPEARS ANXIOUS AND RESTLESS. TALKED TO DR. ONEIL AND ABOUT COMFORT CARE STATUS DUE TO PT DECLINING STATUS. PT MADE COMFORT CARE AND MEDICATED PER MAR WITH RELIEF. PT HAD C/O PAIN IN ABDOMEN WHICH WAS RELIEVED WITH MEDICATION AND REPOSITIONING. PT ON 6L NC WITH SPO2 >95%. PT PULLED OXYGEN OFF AND STATED HE DID NOT WANT IT BACK ON. NURSING PROGRAM MANAGER IN PLACE, PACED RHYTHM WITH HR 60'S. PORT TO RIGHT CHEST WALL, PATENT AND INFUSING TKO. POWERGLIDE TO SINA, SALINE LOCKED. ATTENDS IN PLACE, CLEAN AND DRY. NO BM YET. BED LOW AND LOCKED, CALL LIGHT IN REACH.
--- NOTE | 2023-07-13 21:53 | NUR ---
UPDATE: WHEN PT MADE COMFORT CARE, AT BEDSIDE. PT TIME OF 2114. PT BROTHER NOTIFIED PER THE . SPIRITUAL CARE CALLED TO COME TALK WITH THE . BELONGINGS WILL BE SENT HOME WITH . HOSPITALIST NOTIFIED OF TIME OF .
--- NOTE | 2023-07-13 22:13 | NUR ---
Spiritual Care : EOL Callback ([facility]) Pt. passed at 21:15. Spouse is at bedside appropriately grieving, with the support of attending nurse Lourdes. This lumber inspector facilitated a life review and considered matters of awkward family dynamics. Spouse initially displays evidence of great anxiety. Listen with empathy and a pastoral calming presence. Prayed for the Pt. and the Spouse. Spouse displayed evidence of greater perspective and lower anxiety. EOL Education is considered and spouse has chosen [facility] to be the home. The Pt. was a a , so a [facility] burial will be planned. This lumber inspector walked the Spouse to her car. Spouse verbalized gratitude for the spiritual care support.
[2023-07-15 09:18] LABS: LAMOTRIGINE 16.5 ug/mL (3.0-15.0)
== END 2023-07-13 21:15 | DRG 177 ==
LOC: ER 20:46 → MEDS 20:47 → ER 20:47 → ICUE 20:47 → PCU 20:47 → MEDS 20:47 → PCU 07-10 02:01 → MEDS 07-10 02:57 → PCU 07-10 02:57 → ICUE 07-13 02:43 → PCU 07-13 02:43 → ICUE 07-13 02:52
PROVIDERS: Family Medicine; Internal Medicine; Student in an Organized Health Care Education/Training Program; ADMIT Internal Medicine
PROC: 0W9G3ZZ Drainage of Peritoneal Cavity, Percutaneous Approach (ICD-10-PCS; principal; 2023-07-10)
PROC: XW033E5 Introduction of Remdesivir Anti-infective into Peripheral Vein, Percutaneous Approach, New Technology Group 5 (ICD-10-PCS; 2023-07-10)
PROC: 3E0DX3Z Introduction of Anti-inflammatory into Mouth and Pharynx, External Approach (ICD-10-PCS; 2023-07-10)
PROC: 5A09357 Assistance with Respiratory Ventilation, Less than 24 Consecutive Hours, Continuous Positive Airway Pressure (ICD-10-PCS; 2023-07-13)
PROC: 0T9B70Z Drainage of Bladder with Drainage Device, Via Natural or Artificial Opening (ICD-10-PCS; 2023-07-13)
PROC: 4A033R1 Measurement of Arterial Saturation, Peripheral, Percutaneous Approach (ICD-10-PCS; 2023-07-13)
PROC: 3E033XZ Introduction of Vasopressor into Peripheral Vein, Percutaneous Approach (ICD-10-PCS; 2023-07-13)
DX: U07.1 COVID-19 (principal); G92.8 Other toxic encephalopathy; J12.82 Pneumonia due to coronavirus disease 2019; J96.21 Acute and chronic respiratory failure with hypoxia; C22.8 Malignant neoplasm of liver, primary, unspecified as to type; D61.818 Other pancytopenia; J44.0 Chronic obstructive pulmonary disease with (acute) lower respiratory infection; I48.20 Chronic atrial fibrillation, unspecified; I13.0 Hypertensive heart and chronic kidney disease with heart failure and stage 1 through stage 4 chronic kidney disease, or unspecified chronic kidney disease; I50.32 Chronic diastolic (congestive) heart failure; R18.8 Other ascites; E87.29 Other acidosis; Z66 Do not resuscitate; N18.30 Chronic kidney disease, stage 3 unspecified; D63.1 Anemia in chronic kidney disease; K74.60 Unspecified cirrhosis of liver; E87.5 Hyperkalemia; F32.A Depression, unspecified; K21.9 Gastro-esophageal reflux disease without esophagitis; F41.9 Anxiety disorder, unspecified; E11.22 Type 2 diabetes mellitus with diabetic chronic kidney disease; K76.82 Hepatic encephalopathy; G89.4 Chronic pain syndrome; I25.10 Atherosclerotic heart disease of native coronary artery without angina pectoris; G40.909 Epilepsy, unspecified, not intractable, without status epilepticus; M54.12 Radiculopathy, cervical region; F43.10 Post-traumatic stress disorder, unspecified; E88.09 Other disorders of plasma-protein metabolism, not elsewhere classified; I95.9 Hypotension, unspecified; B19.20 Unspecified viral hepatitis C without hepatic coma; Z92.3 Personal history of irradiation; Z88.8 Allergy status to other drugs, medicaments and biological substances; Z88.5 Allergy status to narcotic agent; Z91.030 Bee allergy status; Z91.038 Other insect allergy status; Z79.84 Long term (current) use of oral hypoglycemic drugs; Z79.02 Long term (current) use of antithrombotics/antiplatelets; Z79.891 Long term (current) use of opiate analgesic; Z79.51 Long term (current) use of inhaled steroids; Z79.899 Other long term (current) drug therapy; Z99.81 Dependence on supplemental oxygen; Z95.0 Presence of cardiac pacemaker; Z90.49 Acquired absence of other specified parts of digestive tract; Z98.890 Other specified postprocedural states; Z87.891 Personal history of nicotine dependence
CPT/HCPCS: 36415; 36600; 51702; 70450; 71045; 80048; 80053; 80175; 81003; 82140; 82728; 82803; 82947; 83540; 83550; 83605; 83615; 83690; 83735; 83880; 84132; 84157; 84443; 84484; 85025; 85610; 87040; 87070; 87205; 89051; 93005; 93010; 94640; 94660; 94664; 94760; 94762; 96361; 96365; 96367; 96375; 99285-25; A9270; C1751; J0248; J0696; J1170; J1940; J2060; J2270; J7030; J7050; J7060; J7799; P9047